=== PATIENT | male | born 1985 | race Caucasian/White ===

== ENCOUNTER 2016-12-09 04:22 | Inpatient (IN) ==
[2016-12-09] MEDS ORDERED: 0.9 % Sodium Chloride 1,000 ML IVC ONE (05:12)
[2016-12-09] MEDS ORDERED: Ondansetron 4 MG/2 ML VIAL IVP ONE (05:12)
[2016-12-09 06:13] LABS: Basophils % 0.2 %; Eosinophils % 0.2 %; Hematocrit 48.4 % (37.5-50.1); Hemoglobin 16.4 g/dL (12.9-16.9); Immature Granulocytes % 0.2 % (0-4); Lymphocytes # 0.7 K/mcL (0.6-4.6); Lymphocytes % 13.4 %; Mean Corpuscular HGB Conc 33.9 g/dL (31.6-35.5); Mean Corpuscular Hemoglobin 30.2 pg (28.0-33.3); Mean Corpuscular Volume 89.1 fL (83.0-100.0); Mean Platelet Volume 9.7 fL (9.4-12.4); Monocytes # 0.1 K/mcL (0.0-1.3); Neutrophils # 4.6 K/mcL (1.6-8.9); Platelet Count 165 K/mcL (140-400); Red Blood Count 5.43 M/mcL (4.19-5.50); Red Cell Distribution Width 12.1 % (11.5-14.5)
[2016-12-09 06:17] LABS: INR 1.1; Prothrombin Time 11.6 Seconds (9.4-12.1)
[2016-12-09 06:19] LABS: Activated Partial Thrombo Time 29.2 Seconds (26.0-36.0)
[2016-12-09 06:28] LABS: Platelet Estimate Normal (Normal)
[2016-12-09] MEDS ORDERED: Ondansetron 4 MG/2 ML VIAL IV ONE (06:30)
[2016-12-09] MEDS ORDERED: *HR* Morphine 2 MG/ML SYRINGE IV ONE (06:30)
[2016-12-09 06:31] LABS: Alanine Aminotransferase 24 Units/L (0-55); Albumin/Globulin Ratio 1.5 (1.1-2.2); Alkaline Phosphatase 64 Units/L (38-126); Amylase 77 Units/L (25-125); Aspartate Amino Transferase 28 Units/L (5-34); BUN/Creatinine Ratio 11 (6-26); Bilirubin,Direct 0.3 mg/dL (0.0-0.5); Bilirubin,Indirect 0.3 mg/dL (0.0-1.2); Bilirubin,Total 0.6 mg/dL (0.2-1.2); Blood Urea Nitrogen 17 mg/dL (8-26); Calcium 9.2 mg/dL (8.6-10.8); Carbon Dioxide 27 mEq/L (19-29); Chloride 96 mEq/L (98-109); Globulin 2.7 g/dL (2.4-3.5); Glucose 386 mg/dL (70-99); Lipase 47 Units/L (8-78); Osmolality,Calculated 296 (280-300); Potassium 4.6 mEq/L (3.5-4.5); Sodium 134 mEq/L (136-145); Total Protein 6.7 g/dL (6.0-8.3); eGFR For African Americans > 60 (> 60); eGFR For Non-African Americans 56 (> 60)
[2016-12-09] MEDS ORDERED: 0.9 % Sodium Chloride 500 ML IV.SOLN IV ONE (06:31)
--- NOTE | 2016-12-09 06:38 | Emergency Department Note ---
Disposition Clinical Impression: Abdominal pain Disposition: Still a Patient Condition: Fair Referrals: Tutu Trevino MD [Primary Care Provider] - Forms: Work/School Release, ED Satisfaction Letter Time of Disposition: 06:56 Abdominal Pain HPI - General Chief Complaint: ED Abdominal Pain Stated Complaint: abd pain/NV/chills Time Seen by Provider: 12/09/16 05:12 Source: patient Mode of arrival: private vehicle Limitations: no limitations Nursing Notes Reviewed: Yes Vital Signs Reviewed: Yes - History of Present Illness HPI Narrative: 30-year-old male presents to the emergency department with abdominal pain, nausea, vomiting and chills. Patient states that this began approximately 2-3 hours ago. He denies any recent contact with sick individuals. He denies any new foods or any additional new exposures. He denies any new medications. He denies any chest pain or shortness of breath. He denies any dizziness or lightheadedness. Pt Subjective Complaint: abdominal pain Onset (ago): hour(s) Consistency: constant Location: diffuse Pain Severity: severe Pain Scale: 10 Quality: aching, sharp Radiation: none Migration to: no migration Improves with: nothing Worsens with: nothing Associated symptoms: Reports: nausea, vomiting, chills. Denies: fever, constipation, dysuria Treatments prior to arrival: none - Related Data Home Medications Medication Instructions Recorded Confirmed Gabapentin [Neurontin] 1,200 mg PO TID 08/17/15 07/15/16 Insulin Human Regular [HumuLIN R] 15 - 25 unit SQ TID 07/15/16 07/15/16 Previous Rx's Medication Instructions Recorded Amoxicillin/Clavulanate [Augmentin] 875 mg PO BIDWM #5 tablet 07/19/16 Insulin NPH, HUMAN [HumuLIN N] 10 unit SQ BID #0 07/19/16 Ondansetron HCl [Zofran] 4 mg PO Q8HR #6 tablet 07/19/16 Pantoprazole Sodium [Protonix] 40 mg PO DAILY #30 tablet. 07/19/16 Cyclobenzaprine [Flexeril] 10 mg PO TID PRN #9 tablet 08/25/16 Dicyclomine [Bentyl] 10 mg PO QID PRN #15 capsule 08/25/16 Ondansetron ODT [Zofran ODT] 1 - 2 tab SL Q4HR #20 tab.rapdis 08/25/16 Allergies Allergy/AdvReac Type Severity Reaction Status Date / Time citalopram [From Celexa] Allergy See Verified 12/09/16 04:24 Comments sertraline [From Zoloft] Allergy See Verified 12/09/16 04:24 Comments acetaminophen AdvReac Diarrhea Verified 12/09/16 04:24 [From Tylenol-Codeine #3] codeine AdvReac Diarrhea Verified 12/09/16 04:24 [From Tylenol-Codeine #3] All systems ED: reviewed and negative except as stated. Constitutional: Reports: chills. Denies: fever Cardiovascular: Denies: chest pain Respiratory: Denies: cough, dyspnea, wheezes Gastrointestinal: Reports: abdominal pain, nausea, vomiting. Denies: diarrhea Musculoskeletal: Denies: back pain, neck pain Integumentary: Denies: rash, abrasion, lesions Neurological: Denies: headache Psychiatric: Denies: anxiety, depression, suicidal thoughts, homicidal thoughts Abdominal Pain PMH - Past Medical History Medical history: Reports: diabetes Male Surgical History: Reports: Adenoidectomy, Tonsillectomy, other Psychiatric history: Reports: depression - Social History Smoking status: Current every day smoker Alcohol use: Reports: occasionally, recent Drug use: Reports: none Physical Exam - General Limitations: no limitations General appearance: alert, in no apparent distress - Head Head exam: atraumatic, normocephalic, normal inspection - Eye Eye exam: Present: normal appearance, PERRL - Neck Neck exam: Present: normal inspection, full ROM, trachea midline - Chest Chest inspection: Present: normal inspection, symmetric chest wall rise - Respiratory Respiratory exam: Present: normal lung sounds bilaterally. Absent: respiratory distress - Cardiovascular Cardiovascular exam: Present: regular rate, normal rhythm, normal heart sounds - Abdominal Exam Abdominal exam: Present: soft, Non-Tender, normal bowel sounds. Absent: distention, guarding, rebound, rigidity - Extremities Exam Extremities exam: Present: normal inspection, full ROM. Absent: tenderness, pedal edema - Expanded Lower Extremity Exam Gait: observed and normal - Back Exam Back exam: Present: normal inspection, full ROM. Absent: tenderness - Neurological Exam Neurological exam: Present: alert, oriented X3 - Psychiatric Psychiatric exam: Present: normal affect, normal mood - Skin Skin exam: Present: warm, dry, intact, normal color Course Vital Signs Temperature 97.4 F L 12/09/16 04:24 Pulse Rate 117 12/09/16 04:24 Respiratory Rate 20 12/09/16 04:24 Blood Pressure 142/82 12/09/16 04:24 O2 Sat by Pulse Oximetry 99 12/09/16 04:24 Temperature 97.4 F L 12/09/16 04:24 Pulse Rate 117 12/09/16 04:24 Respiratory Rate 20 12/09/16 04:24 Blood Pressure 142/82 12/09/16 04:24 O2 Sat by Pulse Oximetry 99 12/09/16 04:24 Oxygen Delivery Oxygen Delivery Room Air Abdominal Pain - Lab Data Lab results reviewed: Yes I reviewed the patient's lab results. Result diagrams: 12/09/16 05:32 12/09/16 05:32 Lab Results 12/09/16 12/09/16 12/09/16 Range/Units 05:32 05:32 05:32 WBC 5.5 (4.3-11.1) K/mcL RBC 5.43 (4.19-5.50) M/mcL Hgb 16.4 (12.9-16.9) g/dL Hct 48.4 (37.5-50.1) % MCV 89.1 (83.0-100.0) fL MCH 30.2 (28.0-33.3) pg MCHC 33.9 (31.6-35.5) g/dL RDW 12.1 (11.5-14.5) % Plt Count 165 (140-400) K/mcL MPV 9.7 (9.4-12.4) fL Immature Gran % 0.2 (0-4) % Seg Neutrophils % 84.0 % Lymphocytes % 13.4 % Monocytes % 2.0 % Eosinophils % 0.2 % Basophils % 0.2 % Neutrophils # 4.6 (1.6-8.9) K/mcL Lymphocytes # 0.7 (0.6-4.6) K/mcL Monocytes # 0.1 (0.0-1.3) K/mcL Eosinophils # 0.0 (0.0-0.6) K/mcL Basophils # 0.0 (0.0-0.2) K/mcL Platelet Estimate Normal (Normal) Immature Plt Fraction 3.0 (1.1-6.1) % PT 11.6 (9.4-12.1) Seconds INR 1.1 APTT 29.2 (26.0-36.0) Seconds Sodium 134 L (136-145) mEq/L Potassium 4.6 H (3.5-4.5) mEq/L Chloride 96 L (98-109) mEq/L Carbon Dioxide 27 (19-29) mEq/L BUN 17 (8-26) mg/dL Creatinine 1.49 H (0.72-1.25) mg/dL Est GFR ( Amer) > 60 (> 60) Est GFR (Non-Af Amer) 56 L (> 60) BUN/Creatinine Ratio 11 (6-26) Glucose 386 H (70-99) mg/dL Calculated Osmolality 296 (280-300) Calcium 9.2 (8.6-10.8) mg/dL Total Bilirubin 0.6 (0.2-1.2) mg/dL Direct Bilirubin 0.3 (0.0-0.5) mg/dL Indirect Bilirubin 0.3 (0.0-1.2) mg/dL AST 28 (5-34) Units/L ALT 24 (0-55) Units/L Alkaline Phosphatase 64 (38-126) Units/L Serum Total Protein 6.7 (6.0-8.3) g/dL Albumin 4.0 (3.5-5.0) g/dL Globulin 2.7 (2.4-3.5) g/dL Albumin/Globulin Ratio 1.5 (1.1-2.2) Amylase 77 (25-125) Units/L Lipase 47 (8-78) Units/L
--- NOTE | 2016-12-09 06:48 | Emergency Department Note ---
START Narrative - START START: I examined this patient and my medical decision-making was reviewed with the [employer]/PA/Advanced Practice Nurse/Resident Physician. I agree with the documented findings, disposition and treatment plan as described except to the extent set forth below. ED attending note: Patient seen with MARA DEUTSCH. Please see a copy of his note for details of the H&P, evaluation, management and disposition of this patient. We independently had [id number] contact with the patient Briefly: A 30-year-old male history of colitis presents with abdominal pain worse over the past several days. Abdominal examination surgically benign. Afebrile stable vital signs labs and CT scans pending. Disposition pending.
--- NOTE | 2016-12-09 06:57 | Emergency Department Note ---
Disposition Clinical Impression: Ileus Intractable nausea and vomiting Qualifiers: Vomiting type: unspecified Qualified Code(s): R11.2 - Nausea with vomiting, unspecified Disposition: Admitted As Inpatient Condition: Fair Referrals: Tutu Trevino MD [Primary Care Provider] - Forms: ED Satisfaction Letter, Work/School Release Time of Disposition: 08:28 Abdominal Pain HPI - General Chief Complaint: ED Abdominal Pain Stated Complaint: abd pain/NV/chills Time Seen by Provider: 12/09/16 05:12 Source: patient Mode of arrival: private vehicle - History of Present Illness Pt Subjective Complaint: abdominal pain Location: diffuse Pain Severity: severe Pain Scale: 10 Quality: aching, sharp Migration to: no migration Improves with: nothing Worsens with: nothing Associated symptoms: Reports: nausea, vomiting, chills. Denies: fever, constipation, dysuria - Related Data Home Medications Medication Instructions Recorded Confirmed Gabapentin [Neurontin] 1,200 mg PO TID 08/17/15 07/15/16 Insulin Human Regular [HumuLIN R] 15 - 25 unit SQ TID 07/15/16 07/15/16 Previous Rx's Medication Instructions Recorded Amoxicillin/Clavulanate [Augmentin] 875 mg PO BIDWM #5 tablet 07/19/16 Insulin NPH, HUMAN [HumuLIN N] 10 unit SQ BID #0 07/19/16 Ondansetron HCl [Zofran] 4 mg PO Q8HR #6 tablet 07/19/16 Pantoprazole Sodium [Protonix] 40 mg PO DAILY #30 tablet. 07/19/16 Cyclobenzaprine [Flexeril] 10 mg PO TID PRN #9 tablet 08/25/16 Dicyclomine [Bentyl] 10 mg PO QID PRN #15 capsule 08/25/16 Ondansetron ODT [Zofran ODT] 1 - 2 tab SL Q4HR #20 tab.rapdis 08/25/16 Allergies Allergy/AdvReac Type Severity Reaction Status Date / Time citalopram [From Celexa] Allergy See Verified 12/09/16 04:24 Comments sertraline [From Zoloft] Allergy See Verified 12/09/16 04:24 Comments acetaminophen AdvReac Diarrhea Verified 12/09/16 04:24 [From Tylenol-Codeine #3] codeine AdvReac Diarrhea Verified 12/09/16 04:24 [From Tylenol-Codeine #3] Constitutional: Reports: chills. Denies: fever Cardiovascular: Denies: chest pain Respiratory: Denies: cough, dyspnea, wheezes Gastrointestinal: Reports: abdominal pain, nausea, vomiting. Denies: diarrhea Musculoskeletal: Denies: back pain, neck pain Integumentary: Denies: rash, abrasion, lesions Neurological: Denies: headache Psychiatric: Denies: anxiety, depression, suicidal thoughts, homicidal thoughts Abdominal Pain PMH - Past Medical History Medical history: Reports: diabetes Male Surgical History: Reports: Adenoidectomy, Tonsillectomy, other Psychiatric history: Reports: depression - Social History Smoking status: Current every day smoker Alcohol use: Reports: occasionally, recent Drug use: Reports: none Physical Exam - General Limitations: no limitations General appearance: alert, in no apparent distress Course Course Narrative: 0600: I have assumed care of this patient from Aron Harden PA-C due to shift change. Briefly, the patient is a 30-year-old alert and oriented and nontoxic- appearing male that presents for evaluation of abdominal pain, nausea, and vomiting that began sometime around midnight last night. Patient states a history of colitis and diabetes. He denies any fever, blood in his stool, diarrhea. He admits to being constipated, as he has not had a bowel movement in the past "2-3 days". Most of his pain is localized to the umbilical and suprapubic region. Dr. Adam has had a [id number] with the patient as well. Dr. Adam recommends a CT of the abdomen and pelvis. If this is negative, he recommends discharge patient home with primary care provider follow -up. Please see previous documentation from [facility] for care provided prior to my arrival. 0820: I discussed the patient's case and CT results with [facility] Dr. Huerta recommends admission to the hospitalist service for further evaluation and treatment of an ileus as well as intractable nausea and vomiting. I have discussed this plan with the patient and the patient is in agreement. At this time, I am awaiting a return phone call from the hospitalist. 0824: Dr. Morfin, hospitalist returned call. Dr. Morfin accepts the patient for admission to the hospitalist service. Vital Signs Temperature 97.4 F L 03/25/17 04:24 Pulse Rate 117 12/09/16 04:24 Respiratory Rate 20 12/09/16 04:24 Blood Pressure 142/82 12/09/16 04:24 O2 Sat by Pulse Oximetry 99 12/09/16 04:24 Temperature 97.4 F L 12/09/16 04:24 Pulse Rate 104 12/09/16 08:05 Respiratory Rate 18 12/09/16 08:05 Blood Pressure 128/74 12/09/16 08:05 O2 Sat by Pulse Oximetry 97 12/09/16 08:05 Oxygen Delivery Oxygen Delivery Room Air Abdominal Pain - Medical Records Medical records reviewed: Yes I reviewed the patient's medical records. - Lab Data Lab results reviewed: Yes I reviewed the patient's lab results. Lab results narrative: Laboratory Last Values WBC 5.5 K/mcL (4.3-11.1) 12/09/16 05:32 RBC 5.43 M/mcL (4.19-5.50) 12/09/16 05:32 Hgb 16.4 g/dL (12.9-16.9) 12/09/16 05:32 Hct 48.4 % (37.5-50.1) 12/09/16 05:32 MCV 89.1 fL (83.0-100.0) 12/09/16 05:32 MCH 30.2 pg (28.0-33.3) 12/09/16 05:32 MCHC 33.9 g/dL (31.6-35.5) 12/09/16 05:32 RDW 12.1 % (11.5-14.5) 12/09/16 05:32 Plt Count 165 K/mcL (140-400) 12/09/16 05:32 MPV 9.7 fL (9.4-12.4) 12/09/16 05:32 Immature Gran % 0.2 % (0-4) 12/09/16 05:32 Seg Neutrophils % 84.0 % 12/09/16 05:32 Lymphocytes % 13.4 % 12/09/16 05:32 Monocytes % 2.0 % 12/09/16 05:32 Eosinophils % 0.2 % 12/09/16 05:32 Basophils % 0.2 % 12/09/16 05:32 Neutrophils # 4.6 K/mcL (1.6-8.9) 12/09/16 05:32 Lymphocytes # 0.7 K/mcL (0.6-4.6) 12/09/16 05:32 Monocytes # 0.1 K/mcL (0.0-1.3) 12/09/16 05:32 Eosinophils # 0.0 K/mcL (0.0-0.6) 12/09/16 05:32 Basophils # 0.0 K/mcL (0.0-0.2) 12/09/16 05:32 Platelet Estimate Normal (Normal) 12/09/16 05:32 Immature Plt Fraction 3.0 % (1.1-6.1) 12/09/16 05:32 PT 11.6 Seconds (9.4-12.1) 12/09/16 05:32 INR 1.1 12/09/16 05:32 APTT 29.2 Seconds (26.0-36.0) 12/09/16 05:32 VBG pH 7.34 pH Units (7.32-7.42) 12/09/16 07:32 VBG pCO2 54 mmHg (41-51) H 12/09/16 07:32 VBG pO2 75 mmHg (25-40) H 12/09/16 07:32 VBG HCO3 29.1 mEq/L (21-27) H 12/09/16 07:32 Sodium 134 mEq/L (136-145) L 12/09/16 05:32 Potassium 4.6 mEq/L (3.5-4.5) H 12/09/16 05:32 Chloride 96 mEq/L (98-109) L 12/09/16 05:32 Carbon Dioxide 27 mEq/L (19-29) 12/09/16 05:32 BUN 17 mg/dL (8-26) 12/09/16 05:32 Creatinine 1.49 mg/dL (0.72-1.25) H 12/09/16 05:32 Est GFR ( Amer) > 60 (> 60) 12/09/16 05:32 Est GFR (Non-Af Amer) 56 (> 60) L 12/09/16 05:32 BUN/Creatinine Ratio 11 (6-26) 12/09/16 05:32 Glucose 386 mg/dL (70-99) H 12/09/16 05:32 POC Glucose 312 (58-89) H 12/09/16 07:27 Calculated Osmolality 296 (280-300) 12/09/16 05:32 Calcium 9.2 mg/dL (8.6-10.8) 12/09/16 05:32 Total Bilirubin 0.6 mg/dL (0.2-1.2) 12/09/16 05:32 Direct Bilirubin 0.3 mg/dL (0.0-0.5) 12/09/16 05:32 Indirect Bilirubin 0.3 mg/dL (0.0-1.2) 12/09/16 05:32 AST 28 Units/L (5-34) 12/09/16 05:32 ALT 24 Units/L (0-55) 12/09/16 05:32 Alkaline Phosphatase 64 Units/L (38-126) 12/09/16 05:32 Serum Total Protein 6.7 g/dL (6.0-8.3) 12/09/16 05:32 Albumin 4.0 g/dL (3.5-5.0) 12/09/16 05:32 Globulin 2.7 g/dL (2.4-3.5) 12/09/16 05:32 Albumin/Globulin Ratio 1.5 (1.1-2.2) 12/09/16 05:32 Amylase 77 Units/L (25-125) 12/09/16 05:32 Lipase 47 Units/L (8-78) 12/09/16 05:32 Beta-Hydroxybutyric Acd 1.74 mmol/L (0.02-0.27) H 12/09/16 05:32 Result diagrams: 12/09/16 05:32 12/09/16 05:32 Lab Results 12/09/16 12/09/16 12/09/16 Range/Units 05:32 05:32 05:32 WBC 5.5 (4.3-11.1) K/mcL RBC 5.43 (4.19-5.50) M/mcL Hgb 16.4 (12.9-16.9) g/dL Hct 48.4 (37.5-50.1) % MCV 89.1 (83.0-100.0) fL MCH 30.2 (28.0-33.3) pg MCHC 33.9 (31.6-35.5) g/dL RDW 12.1 (11.5-14.5) % Plt Count 165 (140-400) K/mcL MPV 9.7 (9.4-12.4) fL Immature Gran % 0.2 (0-4) % Seg Neutrophils % 84.0 % Lymphocytes % 13.4 % Monocytes % 2.0 % Eosinophils % 0.2 % Basophils % 0.2 % Neutrophils # 4.6 (1.6-8.9) K/mcL Lymphocytes # 0.7 (0.6-4.6) K/mcL Monocytes # 0.1 (0.0-1.3) K/mcL Eosinophils # 0.0 (0.0-0.6) K/mcL Basophils # 0.0 (0.0-0.2) K/mcL Platelet Estimate Normal (Normal) Immature Plt Fraction 3.0 (1.1-6.1) % PT 11.6 (9.4-12.1) Seconds INR 1.1 APTT 29.2 (26.0-36.0) Seconds VBG pH (7.32-7.42) pH Units VBG pCO2 (41-51) mmHg VBG pO2 (25-40) mmHg VBG HCO3 (21-27) mEq/L Sodium 134 L (136-145) mEq/L Potassium 4.6 H (3.5-4.5) mEq/L Chloride 96 L (98-109) mEq/L Carbon Dioxide 27 (19-29) mEq/L BUN 17 (8-26) mg/dL Creatinine 1.49 H (0.72-1.25) mg/dL Est GFR ( Amer) > 60 (> 60) Est GFR (Non-Af Amer) 56 L (> 60) BUN/Creatinine Ratio 11 (6-26) Glucose 386 H (70-99) mg/dL POC Glucose (58-89) Calculated Osmolality 296 (280-300) Calcium 9.2 (8.6-10.8) mg/dL Total Bilirubin 0.6 (0.2-1.2) mg/dL Direct Bilirubin 0.3 (0.0-0.5) mg/dL Indirect Bilirubin 0.3 (0.0-1.2) mg/dL AST 28 (5-34) Units/L ALT 24 (0-55) Units/L Alkaline Phosphatase 64 (38-126) Units/L Serum Total Protein 6.7 (6.0-8.3) g/dL Albumin 4.0 (3.5-5.0) g/dL Globulin 2.7 (2.4-3.5) g/dL Albumin/Globulin Ratio 1.5 (1.1-2.2) Amylase 77 (25-125) Units/L Lipase 47 (8-78) Units/L Beta-Hydroxybutyric Acd 1.74 H (0.02-0.27) mmol/L 12/09/16 12/09/16 Range/Units 07:27 07:32 WBC (4.3-11.1) K/mcL RBC (4.19-5.50) M/mcL Hgb (12.9-16.9) g/dL Hct (37.5-50.1) % MCV (83.0-100.0) fL MCH (28.0-33.3) pg MCHC (31.6-35.5) g/dL RDW (11.5-14.5) % Plt Count (140-400) K/mcL MPV (9.4-12.4) fL Immature Gran % (0-4) % Seg Neutrophils % % Lymphocytes % % Monocytes % % Eosinophils % % Basophils % % Neutrophils # (1.6-8.9) K/mcL Lymphocytes # (0.6-4.6) K/mcL Monocytes # (0.0-1.3) K/mcL Eosinophils # (0.0-0.6) K/mcL Basophils # (0.0-0.2) K/mcL Platelet Estimate (Normal) Immature Plt Fraction (1.1-6.1) % PT (9.4-12.1) Seconds INR APTT (26.0-36.0) Seconds VBG pH 7.34 (7.32-7.42) pH Units VBG pCO2 54 H (41-51) mmHg VBG pO2 75 H (25-40) mmHg VBG HCO3 29.1 H (21-27) mEq/L Sodium (136-145) mEq/L Potassium (3.5-4.5) mEq/L Chloride (98-109) mEq/L Carbon Dioxide (19-29) mEq/L BUN (8-26) mg/dL Creatinine (0.72-1.25) mg/dL Est GFR ( Amer) (> 60) Est GFR (Non-Af Amer) (> 60) BUN/Creatinine Ratio (6-26) Glucose (70-99) mg/dL POC Glucose 312 H (58-89) Calculated Osmolality (280-300) Calcium (8.6-10.8) mg/dL Total Bilirubin (0.2-1.2) mg/dL Direct Bilirubin (0.0-0.5) mg/dL Indirect Bilirubin (0.0-1.2) mg/dL AST (5-34) Units/L ALT (0-55) Units/L Alkaline Phosphatase (38-126) Units/L Serum Total Protein (6.0-8.3) g/dL Albumin (3.5-5.0) g/dL Globulin (2.4-3.5) g/dL Albumin/Globulin Ratio (1.1-2.2) Amylase (25-125) Units/L Lipase (8-78) Units/L Beta-Hydroxybutyric Acd (0.02-0.27) mmol/L - Radiology Data Radiology results reviewed: Yes I reviewed the patient's radiology results. Abdomen/Pelvis CT 12/09/16 06:30 IMPRESSION: 1. Evaluation is limited by lack of contrast. Small bowel loops are dilated and fluid-filled measuring up to 4 cm. Fecal material is seen in some of the small bowel loops, suggesting stasis. No bowel wall thickening. There is gradual transition to normal caliber distal loops. Large amount of stool seen throughout the colon. No evidence for high-grade obstruction. 2. Normal appendix. D/ / Maria Ines Parsons MD / Maria Ines Parsons MD Interpreting Provider: Maria Ines Parsons MD
[2016-12-09 07:00] LABS: Beta-Hydroxybutyric Acid 1.74 mmol/L (0.02-0.27)
[2016-12-09 07:37] LABS: VBG HCO3 29.1 mEq/L (21-27); VBG PH 7.34 pH Units (7.32-7.42)
[2016-12-09] MEDS ORDERED: Naloxone 0.4 MG/ML INJ IVP PRN (10:48)
[2016-12-09] MEDS ORDERED: *HR* Morphine 2 MG/ML SYRINGE IVP PRN (10:50)
[2016-12-09] MEDS ORDERED: Ondansetron 4 MG/2 ML VIAL IVP PRN (10:50)
[2016-12-09] MEDS ORDERED: 0.9 % Sodium Chloride 1,000 ML IVC SCH ×2 (11:00→13:15)
--- NOTE | 2016-12-09 11:24 | Internal Med History&Physical ---
<Orin Harley - Last Filed: 12/09/16 15:24> Date of Encounter: 12/09/16 Time of Encounter: 11:22 Assessment and Plan (1) DKA, type 1 Current visit: Yes Status: Acute 1 Patient has been experiencing sudden onset of abd N/V. Has hx of Type 1 DM. Presents iwth BS 386 Anion Gap 11 creatinine 1.49 Beta hydroxinate 1.74 Ph on VBG 7.34 Mild DKS will start on Insulin Gtt per protocol accuceck every hour 2 IVF per DKA protocol 3 monitor I/O 4 NPO 5 zofran for nausea Qualifiers: Diabetes mellitus complication detail: without coma Qualified Code(s): E10.10 - Type 1 diabetes mellitus with ketoacidosis without coma (2) Ileus Current visit: Yes Status: Acute 1 presented with abd pain N/V afebrile. has hx of of colitis and diabetes . CT of abd demonstrates ileus, which I suspect is rt to gastroporesis. Will rest bowel. Make patient NPO for now 2 IVF, zofran for nausea (3) Cigarette smoker Current visit: No Status: Acute 1 encourage to stop smoking nicotine patch (4) DVT prophylaxis Current visit: No Status: Acute 1 [facility] Internal Medicine - H&P: HPI Chief complaint: abd pain N/V Admitted From: Emergency Dept Plans for Post Hospital Care: Home History of present illness: Mr. Garcia is a 30 year old male with a past medical hx of colitis tobacco abuse and type 1 DM. He states that he began having abd pain and N/v yesterday. He describes the pain as sharp and constant. It is worse prior to vomiting and eases after vomiting. He has had > 10 episode of vomiting . He has also been expereincing constipation which he states is chronic. He normally uses Radha lax for his constipation. He is unsure when he had his last BM. He is a type 1 diabetic and checks his BS however he is unable to tell me what his BS have been. He states up and down. His last episode of DKA was approx one year ago. He denies any sick contacts. He denies any ETOH/drug use. He denies any SOB CP diarrhea fever cough or chills. He presented to the ED with the above complaints .According to ED records a CT of ABD did reveal dilatation of small bowel loos and fluid filled measured up to 4cm. As well as fecal matter stasis.. Labwork revealed no leukocytosis Creatinine 1.49 gkucose 386 potassium 4.6 Na 134 cl 96. Beta hydroxinate 1.74. He was given IV fluids pain medicaitions and zofran. He was admitted for further workup and evaluation. Presently he does not appear to be in any respiratory distress. He denies any cp or SOB He does complain of some mild ABD pain No N/V at this time. ABD is soft with diffuse tenderness to palpation. No guarding . Lung sounds are clear, Heart sounds S1S2 no rubs clicks or murmurs. Patient is hemodynamically stable I reviewed this case with Dr Morfin who agrees with plan Past Med Surg Social Fam HX - Past Medical History Medical history: diabetes Psychiatric history: depression - Past Surgical History Surgical History: no surgical history - Social History Smoking Status: Current every day smoker Packs per day: 2 Smokeless Tobacco Status: Yes Alcohol use: rarely Drug use: none Internal Medicine - H&P: Meds Gabapentin [Neurontin] 1,200 mg PO TID 08/17/15 [History] Insulin Human Regular [HumuLIN R] 15 - 25 unit SQ TID 07/15/16 [History] Pantoprazole Sodium [Protonix] 40 mg PO DAILY #30 tablet. 07/19/16 [Rx] Insulin NPH, HUMAN [HumuLIN N] 50 unit SQ HS 12/09/16 [History] Allergies citalopram [From Celexa] Allergy (Verified 12/09/16 04:24) See Comments suicidal ideation sertraline [From Zoloft] Allergy (Verified 12/09/16 04:24) See Comments Suicidal ideation acetaminophen [From Tylenol-Codeine #3] Adverse Reaction (Verified 12/09/16 04: 24) Diarrhea codeine [From Tylenol-Codeine #3] Adverse Reaction (Verified 12/09/16 04:24) Diarrhea All Systems PM: A 10-system review of systems was performed and is negative for pertinent findings except as documented above in the HPI. - Constitutional Constitutional: anorexia - Cardiovascular Cardiovascular ROS IM: no chest pain, no diaphoresis, no dyspnea, no lightheadedness, no palpitations, no syncope - Respiratory Respiratory: no cough, no dyspnea, no wheezing, no excessive phlegm production - Gastrointestinal Gastrointestinal: abdominal pain, nausea, vomiting - Musculoskeletal Musculoskeletal ROS IM: no numbness, no tingling - Integumentary Integumentary IM: no rash, no unusual bruising - Neurological Neurological ROS: no confusion, no convulsions, no focal weakness, no numbness, no tingling, no tremor(s) - Hematologic/Lymphatic Hematologic/Lymphatic: no easy bruising - Constitutional Vitals: Temp Pulse Resp BP Pulse Ox 99.5 F 108 16 123/70 95 12/09/16 11:15 12/09/16 11:15 12/09/16 11:15 12/09/16 11:15 12/09/16 11:15 General appearance: Present: A&O X 3, answers questions appropriately - Head Head exam: Present: atraumatic, normocephalic - Eye Eye exam: Present: PERRL, conjuntiva pink, sclera anicteric Pupils: Present: PERRL - Neck Neck exam general surgery: Present: supple, trachea midline. Absent: lymphadenopathy - Respiratory Respiratory exam: Present: CTAB. Absent: accessory muscle use, rales, rhonchi, wheezes - Cardiovascular Cardiovascular exam: Present: RRR, +S1, +S2. Absent: diastolic murmur, gallop, rubs, systolic murmur - GI/Abdominal GI/Abdominal exam: Present: normal bowel sounds, soft, tenderness, no peritoneal signs. Absent: distended - Extremities Exam Extremities exam: Present: warm, radial pulses palpable and symetrical. Absent : calf tenderness, cyanotic, pedal edema - Neurological Exam Neurological exam: Present: CN II-XII intact, oriented X3, no focal deficits. Absent: pronater drift, facial droop, speech deficit - Skin Skin exam: Present: dry, intact Internal Med - H&P Results - Labs CBC & Chem 7: 12/09/16 05:32 12/09/16 12:23 - Diagnostic Studies Other Images Additional comments: Abdomen/Pelvis CT 12/09/16 06:30 IMPRESSION: 1. Evaluation is limited by lack of contrast. Small bowel loops are dilated and fluid-filled measuring up to 4 cm. Fecal material is seen in some of the small bowel loops, suggesting stasis. No bowel wall thickening. There is gradual transition to normal caliber distal loops. Large amount of stool seen throughout the colon. No evidence for high-grade obstruction. 2. Normal appendix. D/ / 12/09/2016 09:09:10 Maria Ines Parsons MD / morgan Interpreting Provider: Maria Ines Parsons MD <[email or web address] - Last Filed: 12/09/16 20:20> Internal Medicine - H&P: HPI History of present illness: Mr. Garcia is a 30 year old male All Systems PM: A 10-system review of systems was performed and is negative for pertinent findings except as documented above in the HPI. - Constitutional Vitals: Temp Pulse Resp BP Pulse Ox 99.8 F H 111 18 124/66 96 12/09/16 19:43 12/09/16 19:43 12/09/16 19:43 12/09/16 19:43 12/09/16 19:43 Internal Med - H&P Results - Labs CBC & Chem 7: 12/09/16 05:32 12/09/16 19:48 Labs: BMP 12/09/16 12/09/16 12:23 19:48 Sodium 136 136 Potassium 4.9 H 4.3 Chloride 101 105 Carbon Dioxide 23 23 BUN 24 23 Creatinine 1.22 0.94 Glucose 371 H 120 H Calcium 8.0 L 7.5 L - ABG Interpretation ABG results: 12/09/16 19:48 VBG pH 7.40 VBG pCO2 45 VBG pO2 113 H VBG HCO3 27.9 H - Attending Attestation I examined this patient and my medical decision-making was reviewed with the Advanced Practice Nurse. I agree with the documented findings, disposition and treatment plan as described except to the extent set forth below. Patient with type 1 diabetes presented with sudden onset abdominal pain nausea vomiting and diarrhea. Started 12 hours ago. Denies any fever or any prodromal syndrome. On exam he is in no acute distress abdomen is soft nontender nondistended with normoactive bowel sounds. Plan: DKA, will treated with insulin drip per protocol, possible viral gastroenteritis we will treat supportively with IV fluids pain medication and nausea medication. We will check a UA and urine toxicology screen. Check hemoglobin A1c. Restart gabapentin 4 peripheral neuropathy.
[2016-12-09 11:59] LABS: Magnesium 1.4 mg/dL (1.6-2.6); Phosphorous 4.1 mg/dL (2.3-4.7)
[2016-12-09 13:06] LABS: BUN/Creatinine Ratio 20 (6-26); Blood Urea Nitrogen 24 mg/dL (8-26); Carbon Dioxide 23 mEq/L (19-29); Chloride 101 mEq/L (98-109); Glucose 371 mg/dL (70-99); Osmolality,Calculated 301 (280-300); Potassium 4.9 mEq/L (3.5-4.5); Sodium 136 mEq/L (136-145); eGFR For African Americans > 60 (> 60); eGFR For Non-African Americans > 60 (> 60)
[2016-12-09] MEDS ORDERED: Insulin Regular, Human 100 UNIT/ML IV PRN (13:15)
[2016-12-09] MEDS ORDERED: *HR* Dextrose 50 % in Water (Syg) 50 ML SYRINGE IVP PRN (13:15)
[2016-12-09] MEDS ORDERED: Insulin Human Regular 100 UNIT in 0.9 % Sodium Chloride 100 ML IVC SCH (13:15)
[2016-12-09] MEDS ORDERED: D5% in 0.45% NACL 1,000 ML IVC PRN (13:15)
[2016-12-09] MEDS ORDERED: 0.9 % Sodium Chloride w KCl 20 MEQ/1,000 ML MLS IVC SCH (15:00)
[2016-12-09] MEDS: Nicotine 14 MG PATCH.TD24 TD SCH (15:49)
[2016-12-09] MEDS: 0.9 % Sodium Chloride w KCl 20 MEQ/1,000 ML MLS IVC SCH ×2 (15:53→17:51)
[2016-12-09] MEDS ORDERED: D5% in 0.45% NACL w KCl 20 MEQ/1,000 ML MLS IVC PRN (19:31)
[2016-12-09 20:03] LABS: VBG HCO3 27.9 mEq/L (21-27); VBG PH 7.4 pH Units (7.32-7.42)
[2016-12-09 20:15] LABS: BUN/Creatinine Ratio 24 (6-26); Blood Urea Nitrogen 23 mg/dL (8-26); Calcium 7.5 mg/dL (8.6-10.8); Carbon Dioxide 23 mEq/L (19-29); Chloride 105 mEq/L (98-109); Glucose 120 mg/dL (70-99); Osmolality,Calculated 287 (280-300); Potassium 4.3 mEq/L (3.5-4.5); Sodium 136 mEq/L (136-145); eGFR For African Americans > 60 (> 60); eGFR For Non-African Americans > 60 (> 60)
[2016-12-09] MEDS ORDERED: 0.9 % Sodium Chloride w KCl 20 MEQ/1,000 ML MLS IVC PRN (20:35)
[2016-12-09] MEDS ORDERED: Insulin DETEMIR 100 UNIT/ML X5UNITS SQ ONE (20:47)
[2016-12-09] MEDS: Gabapentin 400 MG CAPSULE PO SCH (21:14)
[2016-12-10] MEDS ORDERED: *HR* Enoxaparin 40 MG/0.4 ML SYRINGE SQ SCH (06:00)
[2016-12-10 06:07] LABS: Hematocrit 38.2 % (37.5-50.1); Mean Corpuscular HGB Conc 33.5 g/dL (31.6-35.5); Mean Corpuscular Volume 89.7 fL (83.0-100.0); Mean Platelet Volume 9.9 fL (9.4-12.4); Platelet Count 145 K/mcL (140-400); Red Blood Count 4.26 M/mcL (4.19-5.50); Red Cell Distribution Width 12.2 % (11.5-14.5)
[2016-12-10 06:12] LABS: Hemoglobin 12.8 g/dL (12.9-16.9); Hemoglobin A1C 8.6 %
[2016-12-10 06:18] LABS: BUN/Creatinine Ratio 24 (6-26); Blood Urea Nitrogen 20 mg/dL (8-26); Calcium 7.6 mg/dL (8.6-10.8); Carbon Dioxide 24 mEq/L (19-29); Chloride 104 mEq/L (98-109); Glucose 202 mg/dL (70-99); Osmolality,Calculated 290 (280-300); Sodium 136 mEq/L (136-145); eGFR For African Americans > 60 (> 60); eGFR For Non-African Americans > 60 (> 60)
[2016-12-10 06:36] LABS: Eosinophils # 0.2 K/mcL (0.0-0.6); Large Platelets Present (Not Present); Lymphocytes # 1.6 K/mcL (0.6-4.6); Monocytes # 0.1 K/mcL (0.0-1.3); Neutrophils # 3.8 K/mcL (1.6-8.9)
[2016-12-10 06:37] LABS: Platelet Estimate Normal (Normal); Reactive Lymphocytes Present (Not Present)
[2016-12-10] MEDS ORDERED: Ondansetron 4 MG/2 ML VIAL ONE (07:57)
[2016-12-10] MEDS: Insulin LISPRO 300 UNITS/3 ML VIAL SQ SCH ×3 (08:05→15:56)
[2016-12-10] MEDS: Ondansetron 4 MG/2 ML VIAL IVP PRN ×3 (08:05→23:32)
[2016-12-10] MEDS: Nicotine 14 MG PATCH.TD24 TD SCH (08:06)
[2016-12-10] MEDS: Gabapentin 400 MG CAPSULE PO SCH ×3 (08:06→20:25)
[2016-12-10 12:06] LABS: Bilirubin,Urine Negative (Negative); Blood,Urine Negative (Negative); Clarity,Urine Clear (Clear); Color,Urine Yellow (Yellow); Glucose,Urine (UA) >=1000 mg/dL (Normal); Ketones,Urine 80 mg/dL (Negative); Leukocyte Esterase,Urine Negative (Negative); Nitrite,Urine Negative (Negative); PH,Urine 5.5 pH Units (5.0-8.0); Protein,Urine Negative (Neg-Trace); Specific Gravity,Urine > 1.030 (1.010-1.025); Urobilinogen,Urine Normal (Normal)
[2016-12-10] MEDS: *HR* HYDROmorphone (PF) 1 MG/ML SYRINGE IVP PRN ×3 (13:39→23:31)
[2016-12-10 16:17] LABS: Amphetamine Screen,Urine Negative ng/mL (Cutoff=1000); Barbiturate Screen,Urine Negative ng/mL (Cutoff=200); Benzodiazepines Screen,Urine Negative ng/mL (Cutoff=200); Cannabinoid Screen,Urine Negative ng/mL (Cutoff = 50); Cocaine Screen,Urine Negative ng/mL (Cutoff= 300); Opiate Screen,Urine Negative ng/mL (Cutoff=300); Phencyclidine Screen,Urine Negative ng/mL (Cutoff=25)
[2016-12-10 19:05] LABS: Adenovirus F 40/41 PCR Not detected (Not detect); Astrovirus PCR Not detected (Not detect); Campylobacter by PCR Not detected (Not detect); Cryptosporidium by PCR Not detected (Not detect); Cyclospora cayetanensis PCR Not detected (Not detect); E. coli O157 by PCR Not detected (Not detect); Entamoeba histolytica PCR Not detected (Not detect); Enteroaggregative E.coli(EAEC) Not detected (Not detect); Enteropathogenic E.coli(EPEC) Not detected (Not detect); Enterotoxigenic E.coli (ETEC) Not detected (Not detect); Giardia lamblia PCR Not detected (Not detect); Norovirus GI/GII PCR Not detected (Not detect); Plesiomonas shigelloides PCR Not detected (Not detect); Rotavirus A PCR Not detected (Not detect); Salmonella PCR Not detected (Not detect); Sapovirus PCR Not detected (Not detect); Shig/EnteroinvasiveE coli EIEC Not detected (Not detect); Shigalike tox-prod E coli STEC Not detected (Not detect); Vibrio PCR Not detected (Not detect); Vibrio cholerae PCR Not detected (Not detect); Yersinia enterocolitica PCR Not detected (Not detect)
--- NOTE | 2016-12-10 20:21 | Internal Med Progress Note ---
Date of Encounter: 12/10/16 Time of Encounter: 14:00 - Assessment and plan (1) Type 1 diabetes Current Visit: No Status: Acute Assessment and plan: Completed insulin drip. Switch to insulin sliding scale. Hemoglobin A1c is 8.6 his poorly controlled. We will consult parent educator. Qualifiers: Diabetes mellitus complication status: with hyperglycemia Qualified Code(s) : E10.65 - Type 1 diabetes mellitus with hyperglycemia (2) DKA (diabetic ketoacidoses) Current Visit: No Status: Acute Assessment and plan: Has resolved. Is closed now. Monitor electrolytes. Qualifiers: Diabetes mellitus type: type 1 Diabetes mellitus complication detail: without coma Qualified Code(s): E10.10 - Type 1 diabetes mellitus with ketoacidosis without coma (3) Intractable nausea and vomiting Current Visit: Yes Status: Acute Assessment and plan: We will treat this with Zofran. Qualifiers: Vomiting type: unspecified Qualified Code(s): R11.2 - Nausea with vomiting , unspecified (4) Acute gastroenteritis Current Visit: Yes Status: Acute Assessment and plan: Possible viral etiology. We will check a viral panel. He does not have risk factors proceeded therefore were not send testing. We will treat supportively with IV fluids pain and nausea medication. - Subjective Interval history: Patient reports that his nausea has improved however he continues to have sharp epigastric abdominal pain worse with eating food. Pain improves with IV pain medication. - Constitutional Vitals: Temp Pulse Resp BP Pulse Ox 98.7 F 78 14 132/78 98 12/10/16 16:04 12/10/16 16:04 12/10/16 16:04 12/10/16 16:04 12/10/16 16:04 General appearance: Present: A&O X 3, answers questions appropriately - Eye Eye exam: Present: PERRL, conjuntiva pink, sclera anicteric Pupils: Present: PERRL - Cardiovascular Cardiovascular exam: Present: RRR, +S1, +S2. Absent: diastolic murmur, gallop, rubs, systolic murmur - GI/Abdominal GI/Abdominal exam: Present: normal bowel sounds, soft, no peritoneal signs. Absent: distended, tenderness - Extremities Exam Extremities exam: Present: warm, radial pulses palpable and symetrical. Absent : calf tenderness, cyanotic, pedal edema - Neurological Exam Neurological exam: Present: CN II-XII intact, oriented X3, no focal deficits. Absent: pronater drift, facial droop, speech deficit Internal Medicine: Result - Labs CBC & Chem 7: 12/10/16 05:45 12/10/16 05:45 Labs: Short CBC 12/10/16 Range/Units 05:45 WBC 5.8 (4.3-11.1) K/mcL Hgb 12.8 L D (12.9-16.9) g/dL Hct 38.2 (37.5-50.1) % Plt Count 145 (140-400) K/mcL Neutrophils # 3.8 (1.6-8.9) K/mcL BMP 12/10/16 05:45 Sodium 136 Potassium 4.0 Chloride 104 Carbon Dioxide 24 BUN 20 Creatinine 0.85 Glucose 202 H Calcium 7.6 L Urine 12/09/16 Range/Units 14:35 Urine Color Yellow (Yellow) Urine Clarity Clear (Clear) Urine pH 5.5 (5.0-8.0) pH Units Ur Specific [place] > 1.030 H (1.010-1.025) Urine Protein Negative (Neg-Trace) mg/dL Urine Glucose (UA) >=1000 H (Normal) mg/dL - ABG Interpretation ABG results: PT/INR, D-dimer PT 11.6 Seconds (9.4-12.1) 12/09/16 05:32 Consult Discharge Plan - Plan Referrals: Tutu Trevino MD [Primary Care Provider] -
[2016-12-10] MEDS: *HR* HYDROcodone/Acet 5/325 mg TABLET PO PRN (20:26)
[2016-12-10] MEDS ORDERED: Insulin LISPRO 300 UNITS/3 ML VIAL SQ SCH (21:00)
[2016-12-11 04:45] LABS: Basophils % 0.2 %; Eosinophils # 0.1 K/mcL (0.0-0.6); Eosinophils % 2.1 %; Hematocrit 37.1 % (37.5-50.1); Hemoglobin 12.5 g/dL (12.9-16.9); Immature Granulocytes % 0.2 % (0-4); Lymphocytes # 2.4 K/mcL (0.6-4.6); Lymphocytes % 42.1 %; Mean Corpuscular HGB Conc 33.7 g/dL (31.6-35.5); Mean Corpuscular Hemoglobin 30.9 pg (28.0-33.3); Mean Corpuscular Volume 91.6 fL (83.0-100.0); Mean Platelet Volume 10.2 fL (9.4-12.4); Monocytes # 0.5 K/mcL (0.0-1.3); Monocytes % 7.8 %; Neutrophils # 2.7 K/mcL (1.6-8.9); Platelet Count 118 K/mcL (140-400); Red Blood Count 4.05 M/mcL (4.19-5.50); Red Cell Distribution Width 12.1 % (11.5-14.5); Segmented Neutrophils % 47.6 %
[2016-12-11 04:56] LABS: BUN/Creatinine Ratio 19 (6-26); Blood Urea Nitrogen 17 mg/dL (8-26); Calcium 7.8 mg/dL (8.6-10.8); Carbon Dioxide 24 mEq/L (19-29); Chloride 104 mEq/L (98-109); Glucose 316 mg/dL (70-99); Osmolality,Calculated 294 (280-300); Potassium 4.6 mEq/L (3.5-4.5); Sodium 135 mEq/L (136-145); eGFR For African Americans > 60 (> 60); eGFR For Non-African Americans > 60 (> 60)
[2016-12-11] MEDS: Nicotine 14 MG PATCH.TD24 TD SCH (07:59)
[2016-12-11] MEDS: Insulin LISPRO 300 UNITS/3 ML VIAL SQ SCH (07:59)
[2016-12-11] MEDS: Gabapentin 400 MG CAPSULE PO SCH (07:59)
[2016-12-11] MEDS: *HR* HYDROcodone/Acet 5/325 mg TABLET PO PRN (08:04)
[2016-12-11] MEDS: Ondansetron 4 MG/2 ML VIAL IVP PRN (08:04)
[2016-12-11 11:28] VITALS: BP 126/68
--- NOTE | 2016-12-11 11:31 | Discharge Summary ---
Date of Encounter: 12/11/16 Time of Encounter: 11:31 - Discharge Diagnosis (1) Type 1 diabetes Priority: Secondary Status: Acute Qualifiers: Diabetes mellitus complication status: with hyperglycemia Qualified Code(s) : E10.65 - Type 1 diabetes mellitus with hyperglycemia (2) DKA (diabetic ketoacidoses) Priority: Primary Status: Acute Qualifiers: Diabetes mellitus type: type 1 Diabetes mellitus complication detail: without coma Qualified Code(s): E10.10 - Type 1 diabetes mellitus with ketoacidosis without coma (3) Intractable nausea and vomiting Priority: Secondary Status: Acute Qualifiers: Vomiting type: unspecified Qualified Code(s): R11.2 - Nausea with vomiting , unspecified (4) Acute gastroenteritis Priority: Secondary Status: Acute (5) Tobacco abuse Priority: Secondary Status: Acute - Discharge Medications Prescriptions: Ondansetron [Zofran ODT] 8 mg SL Q8HR #14 tab.rapdis Acetaminophen [Acetaminophen ER] 650 mg PO Q8H PRN #30 tablet.er PRN Reason: pain Nicotine Patch [Nicoderm] 14 mg TD DAILY #30 patch.td24 Home Medications: Gabapentin [Neurontin] 1,200 mg PO TID 08/17/15 [History] Insulin Human Regular [HumuLIN R] 15 - 25 unit SQ TID 07/15/16 [History] Pantoprazole Sodium [Protonix] 40 mg PO DAILY #30 tablet. 07/19/16 [Rx] Insulin NPH, HUMAN [HumuLIN N] 50 unit SQ HS 12/09/16 [History] Acetaminophen [Acetaminophen ER] 650 mg PO Q8H PRN #30 tablet.er 12/11/16 [Rx] Nicotine Patch [Nicoderm] 14 mg TD DAILY #30 patch.td24 12/11/16 [Rx] Ondansetron [Zofran ODT] 8 mg SL Q8HR #14 tab.rapdis 12/11/16 [Rx] Allergies/Adverse Reactions: Allergies citalopram [From Celexa] Allergy (Verified 12/09/16 04:24) See Comments suicidal ideation sertraline [From Zoloft] Allergy (Verified 12/09/16 04:24) See Comments Suicidal ideation acetaminophen [From Tylenol-Codeine #3] Adverse Reaction (Verified 12/09/16 04: 24) Diarrhea codeine [From Tylenol-Codeine #3] Adverse Reaction (Verified 12/09/16 04:24) Diarrhea Date of admission: 12/09/16 11:48 Primary care physician: Tutu Trevino MD - Patient Status Disposition: Home, Self-Care Condition: Fair Functional capacity at discharge: independent ambulation Overall status at discharge: patient is progressing back to baseline - Discharge Instructions Follow Up With: Tutu Trevino MD [Primary Care Provider] - 12/14/16 10:30 am () - Diet and Activity Activity: increase activity as tolerated (The condition can return to work on .) Diet: other (Full liquid diet advanced slowly to a diabetic diet.) Hospital course: Mr. Garcia is a 30 year old male with a past medical hx of colitis tobacco abuse and type 1 DM. He states that he began having abd pain and N/v yesterday. He describes the pain as sharp and constant. It is worse prior to vomiting and eases after vomiting. He has had > 10 episode of vomiting . He has also been expereincing constipation which he states is chronic. He normally uses Radha lax for his constipation. He is unsure when he had his last BM. He is a type 1 diabetic and checks his BS however he is unable to tell me what his BS have been. He states up and down. His last episode of DKA was approx one year ago. He denies any sick contacts. He denies any ETOH/drug use. He denies any SOB CP diarrhea fever cough or chills. He presented to the ED with the above complaints .According to ED records a CT of ABD did reveal dilatation of small bowel loos and fluid filled measured up to 4cm. As well as fecal matter stasis.. Labwork revealed no leukocytosis Creatinine 1.49 gkucose 386 potassium 4.6 Na 134 cl 96. Beta hydroxinate 1.74. He was given IV fluids pain medicaitions and zofran. He was admitted for further workup and evaluation. He was diagnosed with DKA. He was started on IV fluids and DKA protocol. His anion gap closed and the next morning his insulin drip was discontinued. He started eating a diabetic diet and complained of nausea and severe epigastric pain after eating and therefore this was discontinued and he was started on a clear diet which he now tolerates better. He received several doses of IV hydromorphone for pain. Today he did not require IV pain medication. I have counseled him extensively regarding smoking cessation and the importance of controlling his diabetes better. His A1c was 8.6. He will be discharged home and was instructed to slowly advance his diet to a full liquid diet, keep well hydrated and use liquid dietary supplements for now. He was instructed to follow up closely with his primary care physician. Time spent discussing smoking cessation with patient: 3 to 10 minutes - Time Spent with Patient Total time spent providing and/or coordinating discharge services: Greater than 30 minutes (I have spent 40 minutes coordinating this discharge.) - Constitutional Vitals: Temp Pulse Resp BP Pulse Ox 98.2 F 75 15 126/68 96 12/11/16 11:24 12/11/16 07:03 12/11/16 11:24 12/11/16 11:24 12/11/16 07:03 General appearance: Present: A&O X 3, answers questions appropriately - Respiratory Respiratory exam: Present: CTAB. Absent: accessory muscle use, rales, rhonchi, wheezes - Cardiovascular Cardiovascular exam: Present: RRR, +S1, +S2. Absent: diastolic murmur, gallop, rubs, systolic murmur - GI/Abdominal GI/Abdominal exam: Present: normal bowel sounds, soft, no peritoneal signs. Absent: distended, tenderness - Extremities Exam Extremities exam: Present: warm, radial pulses palpable and symetrical. Absent : calf tenderness, cyanotic, pedal edema
== END 2016-12-11 12:30 | disposition home or self-care (01) | DRG 639 ==
LOC: 3ANU 04:22 → EMEROO 04:22 → 3ANU 09:09 → 2NNU 13:10
PROVIDERS: ADMIT Internal Medicine; ATTEND Internal Medicine

== ENCOUNTER 2017-09-01 18:32 | Inpatient (IN) ==
[2017-09-01] MEDS ORDERED: Ondansetron 4 MG/2 ML VIAL IVP ONE (18:42)
--- NOTE | 2017-09-01 18:45 | Emergency Department Note ---
START Narrative - START START: Patient is a 31-year-old white male with a history of type 1 diabetes who has come to the emergency room today due to nausea vomiting, intractable generalized abdominal cramping and elevated blood sugar reporting "I think I have DKA again". Patient states he was last hospitalized a few months ago. He denies any preceding URI symptoms, no sore throat no cough, no fevers or chills , no chest pain or palpitations, no bowel changes associated with the vomiting and no urinary symptoms or flank pain. Patient received 500 mL's of IV fluids I EMS prior to arrival. Patient actively vomiting on arrival. Labs were ordered, IV fluids continued as well as IV Zofran and patient will be signed out to the overnight stocker team for follow-up on labs and final disposition.
[2017-09-01] MEDS: 0.9 % Sodium Chloride 1,000 ML IVC SCH ×2 (19:01→20:19)
[2017-09-01 19:21] LABS: Basophils % 0.3 %; Eosinophils % 0.3 %; Hematocrit 43.7 % (37.5-50.1); Hemoglobin 14.9 g/dL (12.9-16.9); Immature Granulocytes % 0.4 % (0-4); Lymphocytes # 1.1 K/mcL (0.6-4.6); Lymphocytes % 9.2 %; Mean Corpuscular HGB Conc 34.1 g/dL (31.6-35.5); Mean Corpuscular Hemoglobin 30.1 pg (28.0-33.3); Mean Corpuscular Volume 88.3 fL (83.0-100.0); Mean Platelet Volume 10.2 fL (9.4-12.4); Monocytes # 0.7 K/mcL (0.0-1.3); Monocytes % 5.7 %; Neutrophils # 10.4 K/mcL (1.6-8.9); Platelet Count 167 K/mcL (140-400); Red Blood Count 4.95 M/mcL (4.19-5.50); Red Cell Distribution Width 12.3 % (11.5-14.5); Segmented Neutrophils % 84.1 %
[2017-09-01 19:33] LABS: Alanine Aminotransferase 21 Units/L (0-55); Albumin 4.2 g/dL (3.5-5.0); Albumin/Globulin Ratio 1.6 (1.1-2.2); Alkaline Phosphatase 86 Units/L (38-126); Aspartate Amino Transferase 18 Units/L (5-34); BUN/Creatinine Ratio 15 (6-26); Bilirubin,Total 1.3 mg/dL (0.2-1.2); Blood Urea Nitrogen 25 mg/dL (8-26); Calcium 9.5 mg/dL (8.6-10.8); Carbon Dioxide 20 mEq/L (19-29); Chloride 98 mEq/L (98-109); Globulin 2.6 g/dL (2.4-3.5); Glucose 497 mg/dL (70-99); Magnesium 1.6 mg/dL (1.6-2.6); Osmolality,Calculated 309 (280-300); Potassium 4.7 mEq/L (3.5-4.5); Sodium 136 mEq/L (136-145); Total Protein 6.8 g/dL (6.0-8.3); eGFR For African Americans 58 (> 60); eGFR For Non-African Americans 48 (> 60)
--- NOTE | 2017-09-01 19:40 | Emergency Department Note ---
Disposition Clinical Impression: DKA, type 1 Qualifiers: Diabetes mellitus complication detail: without coma Qualified Code(s): E10.10 - Type 1 diabetes mellitus with ketoacidosis without coma DKA (diabetic ketoacidoses) Qualifiers: Diabetes mellitus type: type 1 Diabetes mellitus complication detail: without coma Qualified Code(s): E10.10 - Type 1 diabetes mellitus with ketoacidosis without coma Disposition: Admitted As Inpatient Condition: Fair Referrals: Tutu Trevino MD [Primary Care Provider] - Time of Disposition: 21:37 Nausea/Vomiting/Diarrhea HPI - General Chief complaint: ED Nausea/Vomiting/Diarrhea Stated complaint: DKA Time Seen by Provider: 09/01/17 18:35 Source: EMS Limitations: no limitations Nursing Notes Reviewed: Yes Vital Signs Reviewed: Yes - History of Present Illness HPI Narrative: 31-year-old male presents emergency Department with history of type 1 diabetes presenting with body aches as well as nausea vomiting since earlier this afternoon. See his been doing well yesterday as well as earlier today also since her getting nauseous and vomiting. Patient does have an insulin pump that said has been working well. He is due to change his pump injector at approximately 2200 tonight. He changes it every 3 days. He has had DKA before but he states at least 6 months to years since his last event since they started him on this new pump he has done very well with controlling his sugars. Patient does use a sliding scale when he gives his bolus insulin. He has gotten a total of 19 units basal insulin and 17 units bolus today. Last dose was given at 1500 today was 3 unit bolus. The patient otherwise is having no sicknesses leading up to this including nausea vomiting, pain with urination, constipation, headaches, chest pain, shortness of breath, neck pain, back pain, headaches, pain or tenderness of the arms or legs. He is nauseous and did vomit nonbilious nonbloody today. He is having generalized body aches. And generalized weakness today. Otherwise no complaints. - Related Data Home Medications Medication Instructions Recorded Confirmed Gabapentin [Neurontin] 1,200 mg PO TID 08/17/15 12/09/16 Insulin Human Regular [HumuLIN R] 15 - 25 unit SQ TID 07/15/16 12/09/16 Insulin NPH, HUMAN [HumuLIN N] 50 unit SQ HS 12/09/16 12/09/16 Previous Rx's Medication Instructions Recorded Pantoprazole Sodium [Protonix] 40 mg PO DAILY #30 tablet. 07/19/16 Acetaminophen [Acetaminophen ER] 650 mg PO Q8H PRN #30 tablet.er 12/11/16 Nicotine Patch [Nicoderm] 14 mg TD DAILY #30 patch.td24 12/11/16 Ondansetron [Zofran ODT] 8 mg SL Q8HR #14 tab.rapdis 12/11/16 Albuterol Sulfate [Albuterol 1 puff IH Q4HR PRN #1 puff 02/14/17 Inhaler] Clindamycin HCl 300 mg PO TID #30 capsule 03/17/17 Diclofenac Potassium 50 mg PO TID PRN #20 tablet 03/17/17 Fluticasone Propionate Nasal 120 spray NS DAILY #1 bottle 03/17/17 [Flonase] Ondansetron ODT [Zofran ODT] 4 mg SL Q6HR PRN #20 tab.rapdis 03/26/17 Ondansetron ODT [Zofran ODT] 4 mg SL Q6HR PRN #20 tab.rapdis 03/26/17 Allergies Allergy/AdvReac Type Severity Reaction Status Date / Time citalopram [From Celexa] Allergy See Verified 09/01/17 18:34 Comments sertraline [From Zoloft] Allergy See Verified 09/01/17 18:34 Comments codeine AdvReac Diarrhea Verified 09/01/17 18:34 [From Tylenol-Codeine #3] morphine AdvReac Nausea Verified 09/01/17 18:34 Review of Systems: 10 point review of systems done and negative unless otherwise stated in history of present illness. All systems ED: reviewed and negative except as stated. Review of Systems: As Per HPI Past Medical History - Past Medical History Attestation: Yes The following information was validated with the patient. Medical history: Reports: diabetes, other Surgical history: Reports: no surgical history Psychiatric history: Reports: depression - Social History Smoking Status: Current every day smoker Smokeless Tobacco Status: No Alcohol use: Reports: none Drug use: Reports: none Physical Exam - General Limitations: no limitations General appearance: alert, lethargic - Head Head exam: atraumatic, normocephalic, normal inspection - Eye Eye exam: Present: normal appearance, PERRL, EOMI - ENT ENT exam: normal exam, normal oropharynx, mucous membranes moist - Neck Neck exam: Present: normal inspection, full ROM, trachea midline - Chest Chest inspection: Present: normal inspection, symmetric chest wall rise - Respiratory Respiratory exam: Present: normal lung sounds bilaterally. Absent: respiratory distress, wheezes - Cardiovascular Cardiovascular exam: Present: regular rate, normal rhythm, normal heart sounds - Abdominal Exam Abdominal exam: Present: soft, tenderness, normal bowel sounds. Absent: distention, guarding, rebound, rigidity Abdominal tenderness: Present: diffuse, mild - Extremities Exam Extremities exam: Present: normal inspection, full ROM. Absent: tenderness, pedal edema - Back Exam Back exam: Present: normal inspection, full ROM. Absent: tenderness, CVA tenderness (R), CVA tenderness (L) - Neurological Exam Neurological exam: Present: alert, oriented X3 - Skin Skin exam: Present: warm, dry, intact, normal color Course Course Narrative: 31-year-old male presents to emergency department for most likely DKA. He is a type I diabetic does have an insulin pump. We will get normal DKA labs and give him 3 L normal saline via IV. We will get CBC, BMP, VBG, beta hydroxybutyrate, urinalysis as well as chest x-ray and EKG. We will also order lactate. Patient's okay with this plan. Vital Signs Temperature 97.8 F 09/01/17 18:34 Pulse Rate 119 09/01/17 18:34 Respiratory Rate 18 09/01/17 18:34 Blood Pressure 131/51 09/01/17 18:34 O2 Sat by Pulse Oximetry 95 09/01/17 18:34 Temperature 97.8 F 09/01/17 18:34 Pulse Rate 118 09/01/17 21:54 Respiratory Rate 20 09/01/17 21:54 Blood Pressure 138/65 09/01/17 21:54 O2 Sat by Pulse Oximetry 96 09/01/17 21:54 Oxygen Delivery Oxygen Delivery Room Air Nausea/Vomiting/Diarrhea - [facility] Narrative Medical decision making narrative: 31-year-old male history type 1 diabetes on an insulin pump is electronic presented to the emergency department complaining of nausea vomiting not feeling well as well as generalized body aches. Did get chest x-ray and basic labs. Patient did show he is in DKA today Gap of 18. He had a elevated potassiums were not tested at this time. Albumin of 3 L of IV fluids as well as starting an insulin drip. Patient also was acidotic based on the ABG is 7.2. There is no other preceding events that could have caused this this could have been due to a faulty insulin pump. He is due to change it at 10:00 tonight. I told him to remove it and keep it off until he gets discharged. Family is okay with this plan. I spoke with the hospitalist, Dr. Cardenas who agreed to admit the patient to their service. Patient is now admitted to the hospitalist service in stable condition and family agree to this plan. Chest X-Ray 09/01/17 18:35 IMPRESSION: No acute process. D/ / Bunny Mckinnon MD / Bunny Mckinnon MD Interpreting Provider: Bunny Mckinnon MD - Medical Records Medical records reviewed: Yes I reviewed the patient's medical records. - Lab Data Lab results reviewed: Yes I reviewed the patient's lab results. Result diagrams: 09/01/17 18:58 09/01/17 18:58 Lab Results 09/01/17 09/01/17 09/01/17 Range/Units 18:36 18:37 18:58 WBC 12.4 H (4.3-11.1) K/mcL RBC 4.95 (4.19-5.50) M/mcL Hgb 14.9 (12.9-16.9) g/dL Hct 43.7 (37.5-50.1) % MCV 88.3 (83.0-100.0) fL MCH 30.1 (28.0-33.3) pg MCHC 34.1 (31.6-35.5) g/dL RDW 12.3 (11.5-14.5) % Plt Count 167 (140-400) K/mcL MPV 10.2 (9.4-12.4) fL Immature Gran % 0.4 (0-4) % Seg Neutrophils % 84.1 % Lymphocytes % 9.2 % Monocytes % 5.7 % Eosinophils % 0.3 % Basophils % 0.3 % Neutrophils # 10.4 H (1.6-8.9) K/mcL Lymphocytes # 1.1 (0.6-4.6) K/mcL Monocytes # 0.7 (0.0-1.3) K/mcL Eosinophils # 0.0 (0.0-0.6) K/mcL Basophils # 0.0 (0.0-0.2) K/mcL VBG pH (7.32-7.42) pH Units VBG pCO2 (41-51) mmHg VBG pO2 (25-50) mmHg VBG HCO3 (21-27) mEq/L Sodium (136-145) mEq/L Potassium (3.5-4.5) mEq/L Chloride (98-109) mEq/L Carbon Dioxide (19-29) mEq/L BUN (8-26) mg/dL Creatinine (0.72-1.25) mg/dL Est GFR ( Amer) (> 60) Est GFR (Non-Af Amer) (> 60) BUN/Creatinine Ratio (6-26) Glucose (70-99) mg/dL POC Glucose 411 H* 398 H (58-89) Calculated Osmolality (280-300) Lactic Acid (0.5-2.2) mmol/L Calcium (8.6-10.8) mg/dL Magnesium (1.6-2.6) mg/dL Total Bilirubin (0.2-1.2) mg/dL AST (5-34) Units/L ALT (0-55) Units/L Alkaline Phosphatase (38-126) Units/L Serum Total Protein (6.0-8.3) g/dL Albumin (3.5-5.0) g/dL Globulin (2.4-3.5) g/dL Albumin/Globulin Ratio (1.1-2.2) Beta-Hydroxybutyric Acd (0.02-0.27) mmol/L 09/01/17 09/01/17 09/01/17 Range/Units 18:58 18:58 19:42 WBC (4.3-11.1) K/mcL RBC (4.19-5.50) M/mcL Hgb (12.9-16.9) g/dL Hct (37.5-50.1) % MCV (83.0-100.0) fL MCH (28.0-33.3) pg MCHC (31.6-35.5) g/dL RDW (11.5-14.5) % Plt Count (140-400) K/mcL MPV (9.4-12.4) fL Immature Gran % (0-4) % Seg Neutrophils % % Lymphocytes % % Monocytes % % Eosinophils % % Basophils % % Neutrophils # (1.6-8.9) K/mcL Lymphocytes # (0.6-4.6) K/mcL Monocytes # (0.0-1.3) K/mcL Eosinophils # (0.0-0.6) K/mcL Basophils # (0.0-0.2) K/mcL VBG pH 7.27 L (7.32-7.42) pH Units VBG pCO2 56 H (41-51) mmHg VBG pO2 56 H (25-50) mmHg VBG HCO3 26 (21-27) mEq/L Sodium 136 (136-145) mEq/L Potassium 4.7 H (3.5-4.5) mEq/L Chloride 98 (98-109) mEq/L Carbon Dioxide 20 (19-29) mEq/L BUN 25 (8-26) mg/dL Creatinine 1.71 H (0.72-1.25) mg/dL Est GFR ( Amer) 58 L (> 60) Est GFR (Non-Af Amer) 48 L (> 60) BUN/Creatinine Ratio 15 (6-26) Glucose 497 H (70-99) mg/dL POC Glucose (58-89) Calculated Osmolality 309 H (280-300) Lactic Acid 1.8 (0.5-2.2) mmol/L Calcium 9.5 (8.6-10.8) mg/dL Magnesium 1.6 (1.6-2.6) mg/dL Total Bilirubin 1.3 H (0.2-1.2) mg/dL AST 18 (5-34) Units/L ALT 21 (0-55) Units/L Alkaline Phosphatase 86 (38-126) Units/L Serum Total Protein 6.8 (6.0-8.3) g/dL Albumin 4.2 (3.5-5.0) g/dL Globulin 2.6 (2.4-3.5) g/dL Albumin/Globulin Ratio 1.6 (1.1-2.2) Beta-Hydroxybutyric Acd > 2.00 H (0.02-0.27) mmol/L 09/01/17 09/01/17 Range/Units 20:51 21:29 WBC (4.3-11.1) K/mcL RBC (4.19-5.50) M/mcL Hgb (12.9-16.9) g/dL Hct (37.5-50.1) % MCV (83.0-100.0) fL MCH (28.0-33.3) pg MCHC (31.6-35.5) g/dL RDW (11.5-14.5) % Plt Count (140-400) K/mcL MPV (9.4-12.4) fL Immature Gran % (0-4) % Seg Neutrophils % % Lymphocytes % % Monocytes % % Eosinophils % % Basophils % % Neutrophils # (1.6-8.9) K/mcL Lymphocytes # (0.6-4.6) K/mcL Monocytes # (0.0-1.3) K/mcL Eosinophils # (0.0-0.6) K/mcL Basophils # (0.0-0.2) K/mcL VBG pH (7.32-7.42) pH Units VBG pCO2 (41-51) mmHg VBG pO2 (25-50) mmHg VBG HCO3 (21-27) mEq/L Sodium (136-145) mEq/L Potassium (3.5-4.5) mEq/L Chloride (98-109) mEq/L Carbon Dioxide (19-29) mEq/L BUN (8-26) mg/dL Creatinine (0.72-1.25) mg/dL Est GFR ( Amer) (> 60) Est GFR (Non-Af Amer) (> 60) BUN/Creatinine Ratio (6-26) Glucose (70-99) mg/dL POC Glucose 344 H 353 H (58-89) Calculated Osmolality (280-300) Lactic Acid (0.5-2.2) mmol/L Calcium (8.6-10.8) mg/dL Magnesium (1.6-2.6) mg/dL Total Bilirubin (0.2-1.2) mg/dL AST (5-34) Units/L ALT (0-55) Units/L Alkaline Phosphatase (38-126) Units/L Serum Total Protein (6.0-8.3) g/dL Albumin (3.5-5.0) g/dL Globulin (2.4-3.5) g/dL Albumin/Globulin Ratio (1.1-2.2) Beta-Hydroxybutyric Acd (0.02-0.27) mmol/L - Radiology Data Radiology results reviewed: Yes I reviewed the patient's radiology results. - EKG Data EKG attestation: Yes I reviewed and interpreted this EKG. EKG results narrative: EKG done at 1853 view myself and attending shows sinus tachycardia rate of 116, NC interval 128, QRS 92, QTC 374 with a normal axis. There is no acute ST changes, no acute T-wave abnormalities, no signs of any hypertrophy or heart strength, no signs of any heart block, no signs of WPW/Brugada syndrome. This is unchanged by soft old EKG done 03/26/17. Attestation Statement - Attestation Attestation: I examined this patient and my medical decision-making was reviewed with the Resident Physician. I agree with the documented findings, disposition and treatment plan as described except to the extent set forth below. Patient to ED with nausea vomiting and high blood sugars. Patient is a type I diabetic. Denies fever. Denies cough. Exam shows somewhat dry mucous membranes. Tachycardic. Abdomen soft. Plan. Patient with an increased anion gap. Acidotic. Elevated beta hydroxybutyrate. He received 2 L of IV fluids. Insulin drip and admitted. 40 minutes of critical care exclusive of separately billable procedures.
[2017-09-01 19:46] LABS: VBG HCO3 26 mEq/L (21-27); VBG PCO2 56 mmHg (41-51); VBG PH 7.27 pH Units (7.32-7.42); VBG PO2 56 mmHg (25-50)
[2017-09-01] MEDS ORDERED: *HR* Promethazine 25 MG/ML VIAL IVP ONE (19:58)
[2017-09-01] MEDS ORDERED: 0.9 % Sodium Chloride 1,000 ML IVC ONE ×2 (20:06)
[2017-09-01] MEDS ORDERED: *HR* Dextrose 50 % in Water (Syg) 50 ML SYRINGE IVP PRN ×2 (20:07→22:17)
[2017-09-01] MEDS ORDERED: Insulin Human Regular 100 UNIT in 0.9 % Sodium Chloride 100 ML IVC SCH ×2 (20:15→23:15)
[2017-09-01 21:09] LABS: Beta-Hydroxybutyric Acid > 2.00 mmol/L (0.02-0.27)
[2017-09-01] MEDS ORDERED: Naloxone 0.4 MG/ML INJ IVP PRN (22:15)
[2017-09-01] MEDS ORDERED: Insulin Regular, Human 100 UNIT/ML IV PRN (22:17)
--- NOTE | 2017-09-01 22:21 | Internal Med History&Physical ---
Date of Encounter: 09/01/17 Time of Encounter: 22:19 Assessment and Plan (1) DKA (diabetic ketoacidoses) Current visit: Yes Status: Acute mild acidosis admit for DKA protocol insulin gtt with electrolyte and CBG check blood cx pend from the ED, no evidence of infectious source as current, to watch and monitor inpatient course closely consumer educator check insulin pump to ensure no malfunction Qualifiers: Diabetes mellitus type: type 1 Diabetes mellitus complication detail: without coma Qualified Code(s): E10.10 - Type 1 diabetes mellitus with ketoacidosis without coma (2) Type 1 diabetes Current visit: No Status: Acute insulin above Qualifiers: Diabetes mellitus complication status: with ketoacidosis Qualified Code(s) : E10.10 - Type 1 diabetes mellitus with ketoacidosis without coma (3) Psoriasis Current visit: Yes Status: Acute stable Internal Medicine - H&P: HPI Chief complaint: N/V/Somnolence History of present illness: Mr. Garcia is a 31 year old male presents with DKA. He is a TYPE 1 DM dx 10 years ago. He has an insulin pump being managed by PCP Dr Trevino. He has been in good health until today. He went to work ok this morning but developed nausea and emesis - billious, non-bloody this afternoon and had to come back home early. He is more fatigue , drowsy and tired. Review noted sore throat a couple of days ago. His last DKA was Jun last year. There were some concerns whether his insulin pump had malfunctioned. EKG reviewed with rate 116, sinus tachycardia XR/XR chest 1V portable IMPRESSION: No acute process. Past Med Surg Social Fam HX - Past Medical History Medical history: diabetes, other Psychiatric history: depression - Past Surgical History Surgical History: no surgical history - Social History Smoking Status: Current every day smoker Smokeless Tobacco Status: No Alcohol use: none Drug use: none Internal Medicine - H&P: Meds Gabapentin [Neurontin] 1,200 mg PO TID 08/17/15 [History] Insulin Human Regular [HumuLIN R] 15 - 25 unit SQ TID 07/15/16 [History] Pantoprazole Sodium [Protonix] 40 mg PO DAILY #30 tablet. 07/19/16 [Rx] Insulin NPH, HUMAN [HumuLIN N] 50 unit SQ HS 12/09/16 [History] Acetaminophen [Acetaminophen ER] 650 mg PO Q8H PRN #30 tablet.er 12/11/16 [Rx] Nicotine Patch [Nicoderm] 14 mg TD DAILY #30 patch.td24 12/11/16 [Rx] Ondansetron [Zofran ODT] 8 mg SL Q8HR #14 tab.rapdis 12/11/16 [Rx] Albuterol Sulfate [Albuterol Inhaler] 1 puff IH Q4HR PRN #1 puff 02/14/17 [Rx] Clindamycin HCl 300 mg PO TID #30 capsule 03/17/17 [Rx] Diclofenac Potassium 50 mg PO TID PRN #20 tablet 03/17/17 [Rx] Fluticasone Propionate Nasal [Flonase] 120 spray NS DAILY #1 bottle 03/17/17 [Rx ] Ondansetron ODT [Zofran ODT] 4 mg SL Q6HR PRN #20 tab.rapdis 03/26/17 [Rx] Ondansetron ODT [Zofran ODT] 4 mg SL Q6HR PRN #20 tab.rapdis 03/26/17 [Rx] 3 Allergy/AdvReac Type Severity Reaction Status Date / Time citalopram [From Celexa] Allergy See Verified 09/01/17 18:34 Comments sertraline [From Zoloft] Allergy See Verified 09/01/17 18:34 Comments codeine AdvReac Diarrhea Verified 09/01/17 18:34 [From Tylenol-Codeine #3] morphine AdvReac Nausea Verified 09/01/17 18:34 All Systems PM: A 10-system review of systems was performed and is negative for pertinent findings except as documented above in the HPI. Review of systems: ROS 14 point review of systems reviewed as best as possible given presentation. Pertinent positive or negative as per HPI or otherwise reviewed as negative - Constitutional Vitals: Temp Pulse Resp BP Pulse Ox 97.8 F 118 20 138/65 96 09/01/17 18:34 09/01/17 21:54 09/01/17 21:54 09/01/17 21:54 09/01/17 21:54 Exam: General - Somnolent Eyes - JAJA. Eye lids intact. No scleral icterus Neuro - Somnolent Heart - Sinus. RRR. S1 and S2 present. No added HS/murmurs appreciated. No elevated JVD appreciated. Lung - Adequate air entry b/l, No crackles/wheezes appreciated GI - Soft, non-tender. No hepatosplenomegaly/ascites. BS+ - No CVA/suprapubic tenderness or palpable bladder distension Skin - Intact. Psoriasis plaques. No petechiae/ecchymosis. Warm extremities MSK - Joints with normal ROM. No joint swellings Internal Med - H&P Results - Labs CBC & Chem 7: 09/01/17 18:58 09/01/17 18:58
[2017-09-01] MEDS ORDERED: 0.9 % Sodium Chloride 1,000 ML IVC SCH (22:30)
[2017-09-01] MEDS ORDERED: D5% in 0.45% NACL w KCl 20 MEQ/1,000 ML MLS IVC PRN (22:45)
[2017-09-01] MEDS ORDERED: 0.45 % Sodium Chloride w/KCl 20 MEQ/1,000 ML MLS IVC PRN (22:45)
[2017-09-01] MEDS ORDERED: D5% in 0.45% NACL 1,000 ML IVC PRN (22:45)
[2017-09-01] MEDS ORDERED: 0.9 % Sodium Chloride 1,000 ML IVC PRN (22:45)
[2017-09-01] MEDS ORDERED: 0.9 % Sodium Chloride w KCl 20 MEQ/1,000 ML MLS IVC ONE (22:48)
[2017-09-02 00:53] LABS: Basophils % 0.2 %; Hematocrit 37.5 % (37.5-50.1); Immature Granulocytes % 0.2 % (0-4); Lymphocytes % 7.8 %; Mean Corpuscular HGB Conc 34.1 g/dL (31.6-35.5); Mean Corpuscular Hemoglobin 29.9 pg (28.0-33.3); Mean Corpuscular Volume 87.6 fL (83.0-100.0); Mean Platelet Volume 9.5 fL (9.4-12.4); Monocytes # 0.6 K/mcL (0.0-1.3); Monocytes % 4.9 %; Platelet Count 143 K/mcL (140-400); Red Blood Count 4.28 M/mcL (4.19-5.50); Red Cell Distribution Width 12.2 % (11.5-14.5); Segmented Neutrophils % 86.9 %
[2017-09-02 00:56] LABS: Hemoglobin 12.8 g/dL (12.9-16.9)
[2017-09-02 01:04] LABS: VBG HCO3 26 mEq/L (21-27); VBG PCO2 50 mmHg (41-51); VBG PH 7.33 pH Units (7.32-7.42); VBG PO2 193 mmHg (25-50)
[2017-09-02 01:07] LABS: Alanine Aminotransferase 18 Units/L (0-55); Albumin 3.5 g/dL (3.5-5.0); Albumin/Globulin Ratio 1.8 (1.1-2.2); Alkaline Phosphatase 68 Units/L (38-126); Aspartate Amino Transferase 16 Units/L (5-34); BUN/Creatinine Ratio 18 (6-26); Bilirubin,Direct 0.3 mg/dL (0.0-0.5); Bilirubin,Indirect 0.4 mg/dL (0.0-1.2); Bilirubin,Total 0.7 mg/dL (0.2-1.2); Blood Urea Nitrogen 23 mg/dL (8-26); Calcium 8.7 mg/dL (8.6-10.8); Carbon Dioxide 26 mEq/L (19-29); Chloride 110 mEq/L (98-109); Glucose 171 mg/dL (70-99); Osmolality,Calculated 304 (280-300); Potassium 4.2 mEq/L (3.5-4.5); Sodium 143 mEq/L (136-145); Total Protein 5.5 g/dL (6.0-8.3); eGFR For African Americans > 60 (> 60); eGFR For Non-African Americans > 60 (> 60)
[2017-09-02] MEDS ORDERED: D5% in Water 1,000 ML IVC PRN (01:37)
[2017-09-02] MEDS: 0.9 % Sodium Chloride 1,000 ML IVC SCH ×4 (01:50→22:09)
[2017-09-02] MEDS: Insulin LISPRO 300 UNITS/3 ML VIAL SQ SCH ×5 (04:28→20:49)
[2017-09-02 08:11] LABS: BUN/Creatinine Ratio 19 (6-26); Blood Urea Nitrogen 21 mg/dL (8-26); Calcium 8.3 mg/dL (8.6-10.8); Carbon Dioxide 23 mEq/L (19-29); Chloride 108 mEq/L (98-109); Glucose 181 mg/dL (70-99); Osmolality,Calculated 298 (280-300); Potassium 4.2 mEq/L (3.5-4.5); Sodium 140 mEq/L (136-145); eGFR For African Americans > 60 (> 60); eGFR For Non-African Americans > 60 (> 60)
[2017-09-02] MEDS ORDERED: Insulin NPH 100 UNIT/ML (x5UNIT) SQ SCH (09:00)
[2017-09-02] MEDS ORDERED: Chloraseptic Spray 177 ML BOTTLE MM PRN (10:46)
--- NOTE | 2017-09-02 10:50 | Internal Med Progress Note ---
Date of Encounter: 09/02/17 Time of Encounter: 10:45 - Assessment and plan (1) DKA, type 1 Current Visit: Yes Status: Resolved Assessment and plan: DKA resolved pt restarted on home insulin pump along with sliding scale insulin algorithm pt reports of weakness, and still unable to tolerate PO intake due to sore throat likely d/c in am if clinically improves Qualifiers: Diabetes mellitus complication detail: without coma Qualified Code(s): E10.10 - Type 1 diabetes mellitus with ketoacidosis without coma (2) Leukocytosis, unspecified Current Visit: Yes Status: Acute Assessment and plan: no clinical signs of infectious etiology present f/u blood cultures pt afebrile will continue to monitor off abx Qualifiers: Leukocytosis type: unspecified Qualified Code(s): D72.829 - Elevated white blood cell count, unspecified (3) Type 1 diabetes Current Visit: No Status: Chronic Assessment and plan: continue home dose of insulin (insulin pump-family to bring in the pump) sliding scale insulin algorithm monitor fingerstick and blood glucose ADA diet Qualifiers: Diabetes mellitus complication status: with ketoacidosis Qualified Code(s) : E10.10 - Type 1 diabetes mellitus with ketoacidosis without coma (4) Sore throat Current Visit: No Status: Acute Assessment and plan: secondary to vomiting prior to hospitalization chloraseptic spray prn (5) DVT prophylaxis Current Visit: No Status: Acute Assessment and plan: Heparin SQ - Subjective Interval history: Patient seen and examined at bedside. Resting in bed with family present at bedside. Reports of feeling better compared to previous day but states because of the vomiting, his throat is hurting and is not able to tolerate much PO intake due to the pain. Reports of only taking insulin through his insulin pump at home. Denies any nausea or vomiting at this time. - Constitutional Vitals: Temp Pulse Resp BP Pulse Ox 99.3 F 108 17 108/52 94 09/02/17 06:40 09/02/17 08:25 09/02/17 06:40 09/02/17 06:40 09/02/17 06:40 General appearance: Present: cooperative, A&O X 3, pleasant, no acute distress, answers questions appropriately - Head Head exam: Present: atraumatic, normocephalic - Eye Eye exam: Present: conjuntiva pink, sclera anicteric - Respiratory Respiratory exam: Present: CTAB. Absent: accessory muscle use, rales, rhonchi, wheezes - Cardiovascular Cardiovascular exam: Present: +S1, +S2, tachycardia. Absent: diastolic murmur, gallop, rubs, systolic murmur - GI/Abdominal GI/Abdominal exam: Present: normal bowel sounds, soft, no peritoneal signs. Absent: distended, tenderness - Extremities Exam Extremities exam: Present: warm, radial pulses palpable and symmetrical. Absent : calf tenderness, cyanotic, pedal edema - Neurological Exam Neurological exam: Present: alert, oriented X3 - Psychiatric Psychiatric exam: Present: normal affect, normal mood Internal Medicine: Result - Labs CBC & Chem 7: 09/02/17 00:42 09/02/17 07:48 Labs: Short CBC 09/02/17 Range/Units 00:42 WBC 12.6 H (4.3-11.1) K/mcL Hgb 12.8 L D (12.9-16.9) g/dL Hct 37.5 (37.5-50.1) % Plt Count 143 (140-400) K/mcL Neutrophils # 11.0 H (1.6-8.9) K/mcL BMP 09/02/17 09/02/17 00:42 07:48 Sodium 143 D 140 Potassium 4.2 4.2 Chloride 110 H 108 Carbon Dioxide 26 23 BUN 23 21 Creatinine 1.28 H 1.10 Glucose 171 H 181 H Calcium 8.7 8.3 L Liver Function 09/02/17 Range/Units 00:42 Total Bilirubin 0.7 (0.2-1.2) mg/dL Direct Bilirubin 0.3 (0.0-0.5) mg/dL AST 16 (5-34) Units/L ALT 18 (0-55) Units/L Alkaline Phosphatase 68 (38-126) Units/L Albumin 3.5 (3.5-5.0) g/dL Consult Discharge Plan - Plan Referrals: Tutu Trevino MD [Primary Care Provider] -
[2017-09-02] MEDS: *HR* Heparin 5,000 UNIT/ML VIAL SQ SCH (18:09)
[2017-09-02] MEDS: Ondansetron 4 MG/2 ML VIAL IVP PRN (20:44)
[2017-09-03] MEDS: Insulin LISPRO 300 UNITS/3 ML VIAL SQ SCH ×6 (00:05→21:23)
[2017-09-03] MEDS: Ondansetron 4 MG/2 ML VIAL IVP PRN ×2 (05:03→12:48)
[2017-09-03 05:24] LABS: Basophils % 0.3 %; Eosinophils # 0.1 K/mcL (0.0-0.6); Eosinophils % 0.5 %; Hematocrit 39.7 % (37.5-50.1); Hemoglobin 13.5 g/dL (12.9-16.9); Immature Granulocytes % 0.3 % (0-4); Lymphocytes # 1.5 K/mcL (0.6-4.6); Mean Corpuscular Hemoglobin 29.7 pg (28.0-33.3); Mean Corpuscular Volume 87.4 fL (83.0-100.0); Mean Platelet Volume 9.7 fL (9.4-12.4); Monocytes # 0.5 K/mcL (0.0-1.3); Monocytes % 4.7 %; Neutrophils # 8.8 K/mcL (1.6-8.9); Platelet Count 144 K/mcL (140-400); Red Blood Count 4.54 M/mcL (4.19-5.50); Red Cell Distribution Width 11.9 % (11.5-14.5); Segmented Neutrophils % 80.2 %
[2017-09-03 05:35] LABS: Magnesium 1.4 mg/dL (1.6-2.6); Phosphorous 2.8 mg/dL (2.3-4.7)
[2017-09-03 05:38] LABS: Alanine Aminotransferase 16 Units/L (0-55); Albumin 3.1 g/dL (3.5-5.0); Albumin/Globulin Ratio 1.3 (1.1-2.2); Alkaline Phosphatase 68 Units/L (38-126); Aspartate Amino Transferase 14 Units/L (5-34); BUN/Creatinine Ratio 18 (6-26); Bilirubin,Direct 0.3 mg/dL (0.0-0.5); Bilirubin,Indirect 0.4 mg/dL (0.0-1.2); Bilirubin,Total 0.7 mg/dL (0.2-1.2); Blood Urea Nitrogen 14 mg/dL (8-26); Calcium 8.3 mg/dL (8.6-10.8); Carbon Dioxide 23 mEq/L (19-29); Chloride 106 mEq/L (98-109); Globulin 2.3 g/dL (2.4-3.5); Glucose 236 mg/dL (70-99); Osmolality,Calculated 298 (280-300); Potassium 4.6 mEq/L (3.5-4.5); Sodium 140 mEq/L (136-145); Total Protein 5.4 g/dL (6.0-8.3); eGFR For African Americans > 60 (> 60); eGFR For Non-African Americans > 60 (> 60)
[2017-09-03] MEDS: *HR* Heparin 5,000 UNIT/ML VIAL SQ SCH ×2 (06:00→16:55)
[2017-09-03] MEDS ORDERED: Pseudoephedrine Oral Soln 30 MG/5 ML UDC PO PRN (09:42)
[2017-09-03] MEDS ORDERED: GI Cocktail 40 ML EACH PO ONE (09:42)
--- NOTE | 2017-09-03 09:45 | Internal Med Progress Note ---
Date of Encounter: 09/03/17 Time of Encounter: 09:35 - Assessment and plan (1) DKA, type 1 Current Visit: Yes Status: Resolved Assessment and plan: DKA resolved pt restarted on home insulin pump along with accuchecks pt reports of weakness, and still unable to tolerate PO intake due to sore throat Chloraseptic spray prn will provide GI cocktail x 1 dose likely d/c in am if clinically improves Qualifiers: Diabetes mellitus complication detail: without coma Qualified Code(s): E10.10 - Type 1 diabetes mellitus with ketoacidosis without coma (2) Leukocytosis, unspecified Current Visit: Yes Status: Resolved Qualifiers: Leukocytosis type: unspecified Qualified Code(s): D72.829 - Elevated white blood cell count, unspecified (3) Type 1 diabetes Current Visit: No Status: Chronic Assessment and plan: continue home dose of insulin (insulin pump) monitor fingerstick and blood glucose ADA diet Qualifiers: Diabetes mellitus complication status: with ketoacidosis Qualified Code(s) : E10.10 - Type 1 diabetes mellitus with ketoacidosis without coma (4) Sore throat Current Visit: No Status: Acute Assessment and plan: secondary to vomiting prior to hospitalization chloraseptic spray prn (5) DVT prophylaxis Current Visit: No Status: Acute Assessment and plan: Heparin SQ (6) Hypomagnesemia Current Visit: Yes Status: Acute Assessment and plan: Mg supplemented continue to monitor electrolytes and replace as needed - Subjective Interval history: Patient seen and examined at bedside. Resting in bed and still continues to have sore throat and reports of nasal congestion. States he has not been able to tolerate much PO intake due to the pain. Also noted to have persistent tachycardia. Denies any chest pain or shortness of breath. Will start supportive care for congestion and pain control tentative d/c in am once able to tolerate adequate PO intake Pt currently using his home insulin pump - Constitutional Vitals: Temp Pulse Resp BP Pulse Ox 98.5 F 87 16 136/83 95 09/03/17 07:22 09/03/17 07:22 09/03/17 07:22 09/03/17 07:22 09/03/17 07:22 General appearance: Present: cooperative, A&O X 3, pleasant, no acute distress, answers questions appropriately - Head Head exam: Present: atraumatic, normocephalic - Eye Eye exam: Present: conjuntiva pink, sclera anicteric - Respiratory Respiratory exam: Absent: respiratory distress, wheezes - Cardiovascular Cardiovascular exam: Present: +S1, +S2, tachycardia. Absent: diastolic murmur, systolic murmur - GI/Abdominal GI/Abdominal exam: Present: normal bowel sounds, soft, no peritoneal signs. Absent: distended, tenderness - Extremities Exam Extremities exam: Present: warm, radial pulses palpable and symmetrical. Absent : calf tenderness, cyanotic, pedal edema - Neurological Exam Neurological exam: Present: alert, oriented X3 Internal Medicine: Result - Labs CBC & Chem 7: 09/03/17 05:15 09/03/17 05:15 Labs: Short CBC 09/03/17 Range/Units 05:15 WBC 11.0 (4.3-11.1) K/mcL Hgb 13.5 (12.9-16.9) g/dL Hct 39.7 (37.5-50.1) % Plt Count 144 (140-400) K/mcL Neutrophils # 8.8 (1.6-8.9) K/mcL BMP 09/03/17 05:15 Sodium 140 Potassium 4.6 H Chloride 106 Carbon Dioxide 23 BUN 14 Creatinine 0.80 Glucose 236 H Calcium 8.3 L Liver Function 09/03/17 Range/Units 05:15 Total Bilirubin 0.7 (0.2-1.2) mg/dL Direct Bilirubin 0.3 (0.0-0.5) mg/dL AST 14 (5-34) Units/L ALT 16 (0-55) Units/L Alkaline Phosphatase 68 (38-126) Units/L Albumin 3.1 L (3.5-5.0) g/dL Consult Discharge Plan - Plan Referrals: Tutu Trevino MD [Primary Care Provider] -
[2017-09-03] MEDS: 0.9 % Sodium Chloride 1,000 ML IVC SCH ×2 (09:56→20:11)
--- NOTE | 2017-09-03 10:39 | Electrocardiograph Report ---
[address] [place], [place] [address] Test Date: 2017-09-01 Pat Name: John Garcia Department: 104 Room: 2N03 Gender: M Social Insurance Specialist: : [id number] Requested By: Otf Mckay Order Number: [id number] Reading MD: Fabian Calderon MD Measurements Intervals [place] Rate: 116 P: 68 NH: 128 QRS: 81 QRSD: 92 T: 44 QT: 305 QTc: 374 Interpretive Statements SINUS TACHYCARDIA LEFT ATRIAL ENLARGEMENT Electronically Signed On 09-03-2017 10:37:55 EST by Fabian Calderon MD
[2017-09-03] MEDS: Gabapentin 400 MG CAPSULE PO SCH ×3 (11:26→20:12)
[2017-09-03] MEDS ORDERED: Ibuprofen 800 MG TABLET PO PRN (22:05)
[2017-09-04] MEDS: Insulin LISPRO 300 UNITS/3 ML VIAL SQ SCH ×3 (00:18→07:38)
[2017-09-04 04:39] LABS: Basophils % 0.3 %; Eosinophils # 0.1 K/mcL (0.0-0.6); Hematocrit 39.8 % (37.5-50.1); Hemoglobin 13.5 g/dL (12.9-16.9); Immature Granulocytes % 0.3 % (0-4); Lymphocytes # 1.9 K/mcL (0.6-4.6); Lymphocytes % 31.6 %; Mean Corpuscular HGB Conc 33.9 g/dL (31.6-35.5); Mean Corpuscular Hemoglobin 29.6 pg (28.0-33.3); Mean Corpuscular Volume 87.3 fL (83.0-100.0); Mean Platelet Volume 9.5 fL (9.4-12.4); Monocytes # 0.3 K/mcL (0.0-1.3); Monocytes % 4.8 %; Neutrophils # 3.7 K/mcL (1.6-8.9); Platelet Count 136 K/mcL (140-400); Red Blood Count 4.56 M/mcL (4.19-5.50); Red Cell Distribution Width 11.9 % (11.5-14.5)
[2017-09-04 04:46] LABS: Phosphorous 2.4 mg/dL (2.3-4.7)
[2017-09-04 04:54] LABS: Alanine Aminotransferase 9 Units/L (0-55); Albumin 3.2 g/dL (3.5-5.0); Albumin/Globulin Ratio 1.7 (1.1-2.2); Alkaline Phosphatase 64 Units/L (38-126); Aspartate Amino Transferase 12 Units/L (5-34); Bilirubin,Direct 0.2 mg/dL (0.0-0.5); Bilirubin,Indirect 0.3 mg/dL (0.0-1.2); Bilirubin,Total 0.5 mg/dL (0.2-1.2); Blood Urea Nitrogen 10 mg/dL (8-26); Calcium 8.6 mg/dL (8.6-10.8); Carbon Dioxide 28 mEq/L (19-29); Chloride 108 mEq/L (98-109); Globulin 1.9 g/dL (2.4-3.5); Glucose 187 mg/dL (70-99); Osmolality,Calculated 296 (280-300); Potassium 4.1 mEq/L (3.5-4.5); Sodium 141 mEq/L (136-145); Total Protein 5.1 g/dL (6.0-8.3)
[2017-09-04 04:56] LABS: Magnesium 1.7 mg/dL (1.6-2.6)
[2017-09-04 05:13] LABS: BUN/Creatinine Ratio 12 (6-26); eGFR For African Americans > 60 (> 60); eGFR For Non-African Americans > 60 (> 60)
[2017-09-04] MEDS: 0.9 % Sodium Chloride 1,000 ML IVC SCH (06:30)
[2017-09-04] MEDS: *HR* Heparin 5,000 UNIT/ML VIAL SQ SCH (06:31)
[2017-09-04 07:43] VITALS: BP 144/94
[2017-09-04] MEDS: Gabapentin 400 MG CAPSULE PO SCH (07:46)
--- NOTE | 2017-09-04 09:58 | Discharge Summary ---
Date of Encounter: 09/04/17 Time of Encounter: 09:55 - Discharge Diagnosis (1) DKA, type 1 Priority: Primary Status: Resolved Qualifiers: Diabetes mellitus complication detail: without coma Qualified Code(s): E10.10 - Type 1 diabetes mellitus with ketoacidosis without coma (2) Leukocytosis, unspecified Priority: Secondary Status: Resolved Qualifiers: Leukocytosis type: unspecified Qualified Code(s): D72.829 - Elevated white blood cell count, unspecified (3) Type 1 diabetes Priority: Secondary Status: Chronic Qualifiers: Diabetes mellitus complication status: with ketoacidosis Qualified Code(s) : E10.10 - Type 1 diabetes mellitus with ketoacidosis without coma (4) Sore throat Priority: Secondary Status: Resolved (5) DVT prophylaxis Priority: Secondary Status: Acute (6) Hypomagnesemia Priority: Secondary Status: Resolved - Discharge Medications Home Medications: Gabapentin [Neurontin] 1,200 mg PO TID 08/17/15 [History] Subcutaneous Insulin Pump [T:Slim] 0 units IJ AD PRN 09/02/17 [History] Insulin LISPRO [HumaLOG] 0 units SQ Q4HR vial 09/04/17 [Rx] Allergies/Adverse Reactions: 3 Allergy/AdvReac Type Severity Reaction Status Date / Time citalopram [From Celexa] Allergy See Verified 09/01/17 18:34 Comments sertraline [From Zoloft] Allergy See Verified 09/01/17 18:34 Comments codeine AdvReac Diarrhea Verified 09/01/17 18:34 [From Tylenol-Codeine #3] morphine AdvReac Nausea Verified 09/01/17 18:34 Date of admission: 09/01/17 22:13 Primary care physician: Tutu Trevino MD Consults: 09/01/17 22:14 Consult to Supervisor Multifocal [employer]ens [CONS] Routine Comment: Reason for Consult: DKA , insulin pump 09/01/17 22:45 Consult for Pharmacy Education [CONS] Routine Reason for Consult: insulin pump discussion Call Completed: Yes Consult to Endocrinology [CONS] Routine Consulting Provider: [facility] Reason for Consult: DKA Call Completed: Yes Discharging clinician: Constance Frederick Anticipated date of discharge: 09/04/17 - Patient Status Disposition: Home, Self-Care Condition: Good Functional capacity at discharge: independent ambulation Overall status at discharge: patient is back to baseline - Discharge Instructions Follow Up With: TUTU TREVINO [Other] (THIS IS LOCATED BESIDE OF LISA LEARY FROM DR. BRICENO OFFICE SENT A MESSAGE BACK FOR DR. TREVINO TO SCHEDULE A FOLLOW UP APPOINTMENT AND THEY WILL CALL THE PATIENT AT HOME.) Additional Instructions: Please follow up with your primary care physician within one week after your discharge from the hospital. Please continue your home insulin in addition to all your other medications as prescribed by your primary care physician. Please closely monitor your blood glucose at home. - Diet and Activity Activity: resume usual activities as tolerated Diet: diabetic diet Hospital course: Mr. Garcia is a 31 year old male with PMH of type I DM who was admitted for nausea, vomiting and found to have DKA. He was started on IV fluids, insulin gtt to which he responded appropriately. Due to the persistent vomiting, he had a sore throat which delayed him being able to tolerate PO intake. At this time patient reports of feeling better and BG within acceptable range. He continued to use his home insulin pump throughout the duration of the hospitalization. At this time he is hemodynamically stable and will be discharged to home with follow up with his PCP. - Time Spent with Patient Total time spent providing and/or coordinating discharge services: Less than 30 minutes - Constitutional Vitals: Temp Pulse Resp BP Pulse Ox 97.6 F 68 18 144/94 98 09/04/17 07:36 09/04/17 07:36 09/04/17 07:36 09/04/17 07:36 09/04/17 07:36 General appearance: Present: cooperative, A&O X 3, pleasant, no acute distress, answers questions appropriately - Head Head exam: Present: atraumatic, normocephalic - Eye Eye exam: Present: conjuntiva pink, sclera anicteric - Respiratory Respiratory exam: Present: CTAB. Absent: accessory muscle use, rales, rhonchi, wheezes - Cardiovascular Cardiovascular exam: Present: RRR, +S1, +S2. Absent: diastolic murmur, gallop, rubs, systolic murmur - GI/Abdominal GI/Abdominal exam: Present: normal bowel sounds, soft, no peritoneal signs. Absent: distended, tenderness - Extremities Exam Extremities exam: Present: warm, radial pulses palpable and symmetrical. Absent : calf tenderness, pedal edema - Neurological Exam Neurological exam: Present: alert, oriented X3 - Psychiatric Psychiatric exam: Present: normal affect, normal mood
== END 2017-09-04 10:48 | disposition home or self-care (01) | DRG 639 ==
LOC: 2NNU 18:32 → EMEROO 18:32 → SUATTDRO 22:13 → 2NNU 22:16
PROVIDERS: ADMIT Family Medicine; ATTEND Internal Medicine

== ENCOUNTER 2017-10-06 10:49 | Inpatient (IN) ==
[2017-10-06] MEDS ORDERED: 0.9 % Sodium Chloride 1,000 ML IVC ONE ×2 (11:06→16:52)
[2017-10-06] MEDS ORDERED: Ondansetron 4 MG/2 ML VIAL IVP ONE (11:06)
--- NOTE | 2017-10-06 11:15 | Emergency Department Note ---
Disposition Clinical Impression: Nausea vomiting and diarrhea Disposition: Admitted As Inpatient Condition: Good Time of Disposition: 14:16 General Adult HPI - General Chief complaint: ED Abdominal Pain Stated complaint: abd/chest pain Time Seen by Provider: 10/06/17 11:10 Source: patient Mode of arrival: ambulatory Limitations: no limitations Nursing Notes Reviewed: Yes Vital Signs Reviewed: Yes - History of Present Illness HPI Narrative: 31-year-old male with a history of diabetes who was admitted at outside hospital for DKA about a week ago. States he has had persistent diarrhea since that time also had some vomiting today. He's had a cough that hurts in his chest when he coughs is concerning may have pneumonia. And has generalized body aches did not have a flu shot. Pt Subjective Complaint: Cough and diarrhea Onset (ago): week(s) Location: chest, abdomen (1) Radiation: non-radiation Pain Scale: 9 Quality: burning, aching Consistency: constant Improves with: nothing Worsens with: other (Breathing and cough) Associated symptoms: Reports: cough Treatments Prior to Arrival: none - Related Data Home Medications Medication Instructions Recorded Confirmed Gabapentin [Neurontin] 1,200 mg PO TID 08/17/15 09/02/17 Subcutaneous Insulin Pump [T:Slim] 0 units IJ AD PRN 09/02/17 09/02/17 Previous Rx's Medication Instructions Recorded Insulin LISPRO [HumaLOG] 0 units SQ Q4HR vial 09/04/17 Allergies Allergy/AdvReac Type Severity Reaction Status Date / Time citalopram [From Celexa] Allergy See Verified 10/06/17 10:58 Comments sertraline [From Zoloft] Allergy See Verified 10/06/17 10:58 Comments codeine AdvReac Diarrhea Verified 10/06/17 10:58 [From Tylenol-Codeine #3] morphine AdvReac Nausea Verified 10/06/17 10:58 All systems ED: reviewed and negative except as stated. Constitutional: Denies: fever, chills, weakness, weight change Eyes: Denies: eye pain, eye discharge, vision change ENT ED: Denies: ear pain, throat pain, dental pain, hearing loss, epistaxis, congestion, dysphagia Cardiovascular: Reports: chest pain. Denies: palpitations, dyspnea on exertion , edema, syncope Respiratory: Reports: cough. Denies: dyspnea, wheezes, hemoptysis, stridor Gastrointestinal: Reports: abdominal pain, nausea, vomiting, diarrhea. Denies: constipation, hematemesis, melena, hematochezia Genitourinary: Denies: urgency, dysuria, frequency, hematuria Musculoskeletal: Denies: back pain, neck pain, arthralgia, myalgia Integumentary: Denies: rash, abrasion, lesions Neurological: Denies: headache, weakness, numbness, paresthesias, confusion, abnormal gait, vertigo Psychiatric: Denies: anxiety, depression, suicidal thoughts, homicidal thoughts , auditory hallucinations, visual hallucinations Endocrine: Denies: fatigue Hematological/Lymphatic: Denies: easy bleeding, easy bruising Allergic/Immunologic: Denies: facial swelling, urticaria Past Medical History - Past Medical History Medical history: Reports: diabetes, other Surgical history: Reports: no surgical history Psychiatric history: Reports: depression - Social History Smoking Status: Current every day smoker Smokeless Tobacco Status: No Alcohol use: Reports: none Drug use: Reports: none Physical Exam - General Limitations: no limitations General appearance: alert, in no apparent distress - Head Head exam: atraumatic, normocephalic, normal inspection - Eye Eye exam: Present: normal appearance, PERRL, EOMI - ENT ENT exam: normal exam, normal oropharynx, mucous membranes moist - Neck Neck exam: Present: normal inspection, full ROM, trachea midline - Chest Chest inspection: Present: normal inspection, symmetric chest wall rise - Respiratory Respiratory exam: Present: normal lung sounds bilaterally - Cardiovascular Cardiovascular exam: Present: regular rate, normal rhythm, normal heart sounds - Abdominal Exam Abdominal exam: Present: soft, Non-Tender. Absent: tenderness, distention, guarding, rebound, rigidity - Extremities Exam Extremities exam: Present: normal inspection, full ROM. Absent: tenderness, pedal edema - Expanded Lower Extremity Exam Neurovascular/Tendon exam: Absent: motor deficit, sensory deficit, tendon deficit Gait: observed and normal - Back Exam Back exam: Present: normal inspection, full ROM. Absent: tenderness - Neurological Exam Neurological exam: Present: alert, oriented X3 - Psychiatric Psychiatric exam: Present: normal affect, normal mood - Skin Skin exam: Present: warm, dry, intact, normal color Course - Reevaluation(s) Reevaluation #1: 31-year-old diabetic who was hospitalized last week with DKA comes in with nausea vomiting and diarrhea not able to keep anything down. Initially he did appear to be a dry IV was established. Patient still feels nausea. Patient will be admitted for further evaluation and treatment. Time: 14:14 - Consultations Consultation #1: Discussed with Dr. Kaiser, admit. Time: 14:15 Vital Signs Temperature 98.1 F 10/06/17 10:55 Pulse Rate 116 10/06/17 10:55 Respiratory Rate 22 10/06/17 10:55 Blood Pressure 126/77 10/06/17 10:55 O2 Sat by Pulse Oximetry 99 10/06/17 10:55 Temperature 98.1 F 10/06/17 10:55 Pulse Rate 87 10/06/17 14:24 Respiratory Rate 15 10/06/17 14:24 Blood Pressure 120/81 10/06/17 14:24 O2 Sat by Pulse Oximetry 98 10/06/17 14:24 Oxygen Delivery Oxygen Delivery Room Air Medical Decision Making - Lab Data Result diagrams: 10/06/17 11:24 10/06/17 11:24 Lab Results 10/06/17 10/06/17 10/06/17 Range/Units 11:24 11:24 11:24 WBC 12.3 H (4.3-11.1) K/mcL RBC 5.12 (4.19-5.50) M/mcL Hgb 14.9 (12.9-16.9) g/dL Hct 45.6 (37.5-50.1) % MCV 89.1 (83.0-100.0) fL MCH 29.1 (28.0-33.3) pg MCHC 32.7 (31.6-35.5) g/dL RDW 12.2 (11.5-14.5) % Plt Count 182 (140-400) K/mcL MPV 10.0 (9.4-12.4) fL Immature Gran % 0.4 (0-4) % Seg Neutrophils % 80.7 % Lymphocytes % 10.2 % Monocytes % 7.9 % Eosinophils % 0.5 % Basophils % 0.3 % Neutrophils # 9.9 H (1.6-8.9) K/mcL Lymphocytes # 1.3 (0.6-4.6) K/mcL Monocytes # 1.0 (0.0-1.3) K/mcL Eosinophils # 0.1 (0.0-0.6) K/mcL Basophils # 0.0 (0.0-0.2) K/mcL Sodium 137 (136-145) mEq/L Potassium 4.2 (3.5-5.1) mEq/L Chloride 102 (98-107) mEq/L Carbon Dioxide 29 (23-29) mEq/L BUN 11 (6-20) mg/dL Creatinine 1.01 (0.70-1.30) mg/dL Est GFR ( Amer) > 60 (> 60) Est GFR (Non-Af Amer) > 60 (> 60) BUN/Creatinine Ratio 11 (6-26) Glucose 305 H (70-105) mg/dL Calculated Osmolality 295 (280-300) Lactic Acid 1.0 (0.5-2.2) mmol/L Calcium 9.0 (8.6-10.3) mg/dL Total Bilirubin 0.4 (0.3-1.0) mg/dL Direct Bilirubin 0.0 (0.0-0.2) mg/dL Indirect Bilirubin 0.4 (0.0-1.2) mg/dL AST 6 L (13-39) Units/L ALT 9 (7-52) Units/L Alkaline Phosphatase 68 (34-104) Units/L Serum Total Protein 6.4 (6.4-8.9) g/dL Albumin 3.9 (3.5-5.7) g/dL Globulin 2.5 (2.4-3.5) g/dL Albumin/Globulin Ratio 1.6 (1.1-2.2) Amylase 25 L (29-103) Units/L Lipase 7 L (11-82) Units/L Beta-Hydroxybutyric Acd (0.02-0.27) mmol/L Urine Color (Yellow) Urine Clarity (Clear) Urine pH (5.0-8.0) pH Units Ur Specific [place] (1.010-1.025) Urine Protein (Neg-Trace) mg/dL Urine Glucose (UA) (Normal) mg/dL Urine Ketones (Negative) mg/dL Urine Blood (Negative) Urine Nitrite (Negative) Urine Bilirubin (Negative) Urine Urobilinogen (Normal) mg/dL Ur Leukocyte Esterase (Negative) Urine Microscopic RBC (0-3) per hpf Urine Microscopic WBC (0-3) per hpf Ur Squamous Epith Cells (None-Few) per lpf Urine Bacteria (None-Few) per hpf Hyaline Casts (None-Few) per lpf Ur Culture Indicated? (NO) 10/06/17 10/06/17 Range/Units 11:24 11:29 WBC (4.3-11.1) K/mcL RBC (4.19-5.50) M/mcL Hgb (12.9-16.9) g/dL Hct (37.5-50.1) % MCV (83.0-100.0) fL MCH (28.0-33.3) pg MCHC (31.6-35.5) g/dL RDW (11.5-14.5) % Plt Count (140-400) K/mcL MPV (9.4-12.4) fL Immature Gran % (0-4) % Seg Neutrophils % % Lymphocytes % % Monocytes % % Eosinophils % % Basophils % % Neutrophils # (1.6-8.9) K/mcL Lymphocytes # (0.6-4.6) K/mcL Monocytes # (0.0-1.3) K/mcL Eosinophils # (0.0-0.6) K/mcL Basophils # (0.0-0.2) K/mcL Sodium (136-145) mEq/L Potassium (3.5-5.1) mEq/L Chloride (98-107) mEq/L Carbon Dioxide (23-29) mEq/L BUN (6-20) mg/dL Creatinine (0.70-1.30) mg/dL Est GFR ( Amer) (> 60) Est GFR (Non-Af Amer) (> 60) BUN/Creatinine Ratio (6-26) Glucose (70-105) mg/dL Calculated Osmolality (280-300) Lactic Acid (0.5-2.2) mmol/L Calcium (8.6-10.3) mg/dL Total Bilirubin (0.3-1.0) mg/dL Direct Bilirubin (0.0-0.2) mg/dL Indirect Bilirubin (0.0-1.2) mg/dL AST (13-39) Units/L ALT (7-52) Units/L Alkaline Phosphatase (34-104) Units/L Serum Total Protein (6.4-8.9) g/dL Albumin (3.5-5.7) g/dL Globulin (2.4-3.5) g/dL Albumin/Globulin Ratio (1.1-2.2) Amylase (29-103) Units/L Lipase (11-82) Units/L Beta-Hydroxybutyric Acd 0.66 H (0.02-0.27) mmol/L Urine Color Yellow (Yellow) Urine Clarity Clear (Clear) Urine pH 6.0 (5.0-8.0) pH Units Ur Specific [place] > 1.030 H (1.010-1.025) Urine Protein Trace (Neg-Trace) mg/dL Urine Glucose (UA) >=1000 H (Normal) mg/dL Urine Ketones 15 H (Negative) mg/dL Urine Blood Negative (Negative) Urine Nitrite Negative (Negative) Urine Bilirubin Negative (Negative) Urine Urobilinogen Normal (Normal) mg/dL Ur Leukocyte Esterase Negative (Negative) Urine Microscopic RBC 3-5 H (0-3) per hpf Urine Microscopic WBC 0-3 (0-3) per hpf Ur Squamous Epith Cells Few (None-Few) per lpf Urine Bacteria None Seen (None-Few) per hpf Hyaline Casts None Seen (None-Few) per lpf Ur Culture Indicated? NO (NO) - EKG Data EKG #1 EKG attestation: Yes I reviewed and interpreted this EKG. EKG shows normal: sinus rhythm Rate: normal Rhythm: NSR Interpretation: no acute changes
[2017-10-06 11:50] LABS: Alanine Aminotransferase 9 Units/L (7-52); Albumin 3.9 g/dL (3.5-5.7); Albumin/Globulin Ratio 1.6 (1.1-2.2); Alkaline Phosphatase 68 Units/L (34-104); Amylase 25 Units/L (29-103); Aspartate Amino Transferase 6 Units/L (13-39); BUN/Creatinine Ratio 11 (6-26); Bilirubin,Indirect 0.4 mg/dL (0.0-1.2); Bilirubin,Total 0.4 mg/dL (0.3-1.0); Blood Urea Nitrogen 11 mg/dL (6-20); Carbon Dioxide 29 mEq/L (23-29); Chloride 102 mEq/L (98-107); Globulin 2.5 g/dL (2.4-3.5); Glucose 305 mg/dL (70-105); Lipase 7 Units/L (11-82); Osmolality,Calculated 295 (280-300); Potassium 4.2 mEq/L (3.5-5.1); Sodium 137 mEq/L (136-145); Total Protein 6.4 g/dL (6.4-8.9); eGFR For African Americans > 60 (> 60); eGFR For Non-African Americans > 60 (> 60)
[2017-10-06 12:07] LABS: Basophils % 0.3 %; Eosinophils # 0.1 K/mcL (0.0-0.6); Eosinophils % 0.5 %; Hematocrit 45.6 % (37.5-50.1); Hemoglobin 14.9 g/dL (12.9-16.9); Immature Granulocytes % 0.4 % (0-4); Lymphocytes # 1.3 K/mcL (0.6-4.6); Lymphocytes % 10.2 %; Mean Corpuscular HGB Conc 32.7 g/dL (31.6-35.5); Mean Corpuscular Hemoglobin 29.1 pg (28.0-33.3); Mean Corpuscular Volume 89.1 fL (83.0-100.0); Monocytes % 7.9 %; Neutrophils # 9.9 K/mcL (1.6-8.9); Platelet Count 182 K/mcL (140-400); Red Blood Count 5.12 M/mcL (4.19-5.50); Red Cell Distribution Width 12.2 % (11.5-14.5); Segmented Neutrophils % 80.7 %
[2017-10-06 12:53] LABS: Bilirubin,Urine Negative (Negative); Blood,Urine Negative (Negative); Clarity,Urine Clear (Clear); Color,Urine Yellow (Yellow); Glucose,Urine (UA) >=1000 mg/dL (Normal); Ketones,Urine 15 mg/dL (Negative); Leukocyte Esterase,Urine Negative (Negative); Nitrite,Urine Negative (Negative); Protein,Urine Trace mg/dL (Neg-Trace); Specific Gravity,Urine > 1.030 (1.010-1.025); Urobilinogen,Urine Normal (Normal)
[2017-10-06 12:56] LABS: Bacteria,Urine None Seen per hpf (None-Few); Hyaline Casts,Urine None Seen per lpf (None-Few); Squamous Epithelial Cell,Urine Few per lpf (None-Few); WBC,Urine 0-3 per hpf (0-3)
[2017-10-06] MEDS ORDERED: *HR* HYDROcodone/Acet 5/325 mg TABLET PO ONE (14:13)
[2017-10-06] MEDS ORDERED: Naloxone 0.4 MG/ML INJ IVP PRN (16:29)
[2017-10-06] MEDS ORDERED: Acetaminophen 325 MG TABLET PO PRN (16:36)
[2017-10-06] MEDS ORDERED: [UNRECOGNIZED DRUG - SUPPLY] SQ PRN (16:46)
--- NOTE | 2017-10-06 16:58 | Internal Med History&Physical ---
Date of Encounter: 10/06/17 Time of Encounter: 15:30 Assessment and Plan (1) HCAP (healthcare-associated pneumonia) Current visit: Yes Status: Acute Acute HCAP. Pt. reports being hospitalized for hospital one week ago with colitis and DKA. States he began having nausea, vomiting, diarrhea, and shortness of breath for the past 3 days with left chest pain with cough and yellow sputum production. Single view chest x-ray today shows left lower lobe pneumonia. Right lung is clear. No pleural effusion or pneumothorax is present. Supplemental O2 with titration and SPO2 monitoring. DuoNeb every 6 scheduled. IVPB vancomycin with pharmacy dosing and Zosyn 3.375 gm every 8 for infection coverage. Blood cultures and sputum culture ordered. Will adjust antibiotic coverage based on culture results. Patient not currently in DKA but blood glucose is 305 on admission. Patient to continue insulin pump with dosing. Patient and follow-up labs to be monitored closely. Patient discussed with Dr. Kasier who is in agreement with plan of care. Patient is high risk for further morbidity and sepsis due to current left lower lobe pneumonia, conditions meeting sepsis criteria; recurrent nausea, vomiting, and diarrhea, and risk factors. Inpatient. (2) Sepsis Current visit: Yes Status: Acute Pt. currently meets sepsis criteria w/WBC of 12.3, HR of 116, RR of 22, and pneumonia of LLL according to CXR today. Lactic acid ordered stat. Pt. received 1L bolus 0.9 NS in ED. Will f/u w/one more 1L bolus then 125 mL/HR. Blood cultures x2. Sputum culture. Legionella and strep pneumoniae antigens ordered. Continuos cardiac telemetry. Supplemental O2 w/titration and SpO2 monitoring. DuoNebs Q6 scheduled. IVPB vancomycin w/pharmacy dosing and Zosyn 3.375 gm Q8 for infection coverage. Will adjust abx coverage based on culture results. Monitor pt. and f/u labs closely. Qualifiers: Sepsis type: sepsis due to unspecified organism Qualified Code(s): A41.9 - Sepsis, unspecified organism (3) Nausea vomiting and diarrhea Current visit: Yes Status: Acute Acute nausea, vomiting, and diarrhea for the past three days. IVP Phenergan 12.5 mg Q6 for N/V. Stool culture and fecal hemoccult ordered. Monitor I&O and daily weight. Clear liquid diet to be advanced as tolerated. (4) Tobacco abuse Current visit: Yes Status: Chronic Hx of chronic tobacco abuse. Pt. states he smokes 1.5 PPD w/no intent of quitting at present time. 21 mg nicotine patch daily. (5) Type 1 diabetes Current visit: Yes Status: Chronic Hx of chronic DM controlled w/insulin pump. Pt. to use own pump and maintain dosing while inpatient. BG checks ACHS. A1c in a.m. labs. Pt. not currently in DKA but will be monitored closely d/t current infection and sepsis criteria. Qualifiers: Diabetes mellitus complication status: with unspecified complications Qualified Code(s): E10.8 - Type 1 diabetes mellitus with unspecified complications (6) DVT prophylaxis Current visit: Yes Status: Acute Lovenox 40 mg 0600 for DVT prophylaxis. Monitor pt. for signs of bleeding. Internal Medicine - H&P: HPI Chief complaint: Abdominal pain/Chest pain w/cough Admitted From: Emergency Dept Plans for Post Hospital Care: Home History of present illness: Mr. Garcia is a 31 year old male with medical hx of diabetes on insulin pump presents from the ED w/chief complaint of SOB, abdominal pain, nausea, vomiting , cough w/yellow sputum production, diarrhea, and left-sided chest pain which worsens w/cough for the past three days. Pt. reports he was admitted to the hospital one week ago with colitis and DKA. Pt. reports body aches as well. Pt. Denies fever, chills, changes in vision, headache, weakness, fatigue, palpitations, edema, constipation, unusual bleeding, back pain, neck pain, numbness, tingling, pre-syncope, or syncope. Past Med Surg Social Fam HX - Past Medical History Source: patient, old records reviewed, obtained from family Medical history: diabetes (Controlled w/insulin pump), other Psychiatric history: depression - Past Surgical History Surgical History: no surgical history - Social History Smoking Status: Current every day smoker Packs per day: 1.5 PPD Smokeless Tobacco Status: No Alcohol use: none Drug use: none Occupational status: employed Current living situation: Home, With Family Activity Level: Independent ambulation Recent Out of Country Travel Within the Last 8 Weeks: No Exposure or Possible Exposure to Illness During Travel: No - Family History Mother Adopted: No Race: Family Member Ethnicity: Non- Living Status: Still Living Hx Family Cardiac Disorders: Yes (HTN) Father Race: Family Member Ethnicity: Non- Living Status: Still Living Hx Family Cardiac Disorders: Yes (AR, HTN) Hx Family Endocrine Disorder: Yes (Type 2 Diabetic) Sister Race: Family Member Ethnicity: Non- Living Status: Still Living Hx Family Endocrine Disorder: Yes (Grave's disease) Internal Medicine - H&P: Meds Gabapentin [Neurontin] 1,200 mg PO TID 08/17/15 [History] Subcutaneous Insulin Pump [T:Slim] 0 units IJ AD PRN 09/02/17 [History] Buprenorphine HCl/Naloxone HCl [Suboxone 8 mg-2 mg Sl Film] 1 film SL BID [History] 3 Allergy/AdvReac Type Severity Reaction Status Date / Time citalopram [From Celexa] Allergy See Verified 10/06/17 10:58 Comments sertraline [From Zoloft] Allergy See Verified 10/06/17 10:58 Comments codeine AdvReac Diarrhea Verified 10/06/17 10:58 [From Tylenol-Codeine #3] morphine AdvReac Nausea Verified 10/06/17 10:58 All Systems PM: A 10-system review of systems was performed and is negative for pertinent findings except as documented above in the HPI. - Constitutional Constitutional: no chills, no fever(s), no night sweats - EENT Eyes: no change in vision, no discharge, no pain, no photophobia Ears: no ear discharge, no ear pain, no tinnitus Nose, mouth and throat: no dysphagia, no nasal discharge, no neck pain, no sore throat - Breasts Breasts: as per HPI - Cardiovascular Cardiovascular ROS IM: as per HPI, chest pain, dyspnea, dyspnea on exertion, no diaphoresis, no lightheadedness, no palpitations, no syncope - Respiratory Respiratory: as per HPI, cough, dyspnea, dyspnea on exertion, change in phlegm color (Yellow), pain with cough, no wheezing, no excessive phlegm production - Gastrointestinal Gastrointestinal: as per HPI, diarrhea, nausea, vomiting, no abdominal pain, no hematemesis, no hematochezia, no melena - Genitourinary Genitourinary ROS male: as per HPI - Musculoskeletal Musculoskeletal ROS IM: no numbness, no tingling - Integumentary Integumentary IM: as per HPI - Neurological Neurological ROS: no confusion, no convulsions, no focal weakness, no numbness, no tingling, no tremor(s) - Psychiatric Psychiatric: as per HPI, depression - Endocrine Endocrine IM: as per HPI - Hematologic/Lymphatic Hematologic/Lymphatic: no easy bruising - Allergic/Immunologic Allergic/Immunologic: as per HPI - Constitutional Vitals: Temp Pulse Resp BP Pulse Ox 98.9 F 100 20 134/74 96 10/06/17 16:22 10/06/17 16:22 10/06/17 16:22 10/06/17 16:22 10/06/17 16:22 General appearance: Present: cooperative, mild distress, A&O X 3, pleasant, answers questions appropriately - Head Head exam: Present: atraumatic, normocephalic - Eye Eye exam: Present: PERRL, conjuntiva pink, sclera anicteric Pupils: Present: PERRL - ENT ENT exam: Present: normal exam - Neck Neck exam general surgery: Present: normal inspection, supple, trachea midline. Absent: lymphadenopathy - Respiratory Respiratory exam: Present: accessory muscle use, wheezes. Absent: rales, rhonchi - Cardiovascular Cardiovascular exam: Present: RRR, +S1, +S2. Absent: diastolic murmur, gallop, rubs, systolic murmur - GI/Abdominal GI/Abdominal exam: Present: normal bowel sounds, soft, tenderness, no peritoneal signs. Absent: distended - Rectal Rectal exam: Present: deferred - Additional comments: exam deferred. - Extremities Exam Extremities exam: Present: warm, radial pulses palpable and symmetrical. Absent : calf tenderness, cyanotic, pedal edema - Back Exam Back exam: Present: normal inspection - Neurological Exam Neurological exam: Present: CN II-XII intact, oriented X3, no focal deficits. Absent: pronater drift, facial droop, speech deficit - Psychiatric Psychiatric exam: Present: normal affect, normal mood - Skin Skin exam: Present: dry, intact Internal Med - H&P Results - Labs CBC & Chem 7: 10/06/17 11:24 10/06/17 11:24 - EKG Data EKG shows normal: sinus rhythm - EKG Data Prior EKG available for review: yes EKG comments: 10/06/17 17:11 EKG dated 09/01/17 shows sinus tachycardia and left atrial enlargement. EKG dated 10/06/17 shows sinus rhythm with possible right atrial enlargement. - Impressions ITS Impressions Chest X-Ray 10/06/17 14:41 IMPRESSION: Left lower lobe pneumonia. Radiographic follow-up recommended to assure resolution. D/ / 10/06/2017 15:36:44 Sunny Leon MD / morgan Interpreting Provider: Sunny Leon MD - Diagnostic Studies Chest x-ray Additional comments: Impressions Chest X-Ray 10/06/17 14:41
[2017-10-06] MEDS: Vancomycin 1,250 MG in D5% in Water 250 ML IVPB SCH (18:01)
[2017-10-06] MEDS: *HR* Promethazine 25 MG/ML VIAL IVP PRN (18:02)
[2017-10-06] MEDS: Nicotine 21 MG PATCH.TD24 TD SCH (18:03)
[2017-10-06] MEDS ORDERED: Benzonatate 100 MG CAPSULE PO PRN (18:24)
--- NOTE | 2017-10-06 18:32 | Event Note ---
Date of Encounter: 10/06/17 Time of Encounter: 18:31 Patient seen and examined with MANAGEMENT CONSULTANT. Agree with assessment and plan.
[2017-10-06] MEDS: Gabapentin 400 MG CAPSULE PO SCH (19:36)
[2017-10-06] MEDS: Piperacillin/Tazobactam 3.375 GM/200 ML BAG IVPB SCH (19:42)
[2017-10-06] MEDS: 0.9 % Sodium Chloride 1,000 ML IVC SCH (21:49)
[2017-10-06] MEDS ORDERED: Ibuprofen 600 MG TABLET PO PRN (22:04)
[2017-10-06] MEDS: Ipratropium/Albuterol Neb 3 ML IH SCH (22:10)
[2017-10-07] MEDS: Piperacillin/Tazobactam 3.375 GM/200 ML BAG IVPB SCH ×4 (01:23→23:10)
[2017-10-07] MEDS: Ipratropium/Albuterol Neb 3 ML IH SCH ×4 (03:36→22:13)
[2017-10-07] MEDS: Vancomycin 1,250 MG in D5% in Water 250 ML IVPB SCH ×2 (05:28→18:32)
[2017-10-07] MEDS: *HR* Promethazine 25 MG/ML VIAL IVP PRN ×3 (05:38→21:37)
[2017-10-07] MEDS: 0.9 % Sodium Chloride 1,000 ML IVC SCH ×3 (05:41→16:19)
[2017-10-07] MEDS: *HR* Enoxaparin 40 MG/0.4 ML SYRINGE SQ SCH (05:43)
[2017-10-07 06:05] LABS: Hemoglobin A1C 8.8 %
[2017-10-07 06:06] LABS: Basophils % 0.3 %; Eosinophils # 0.1 K/mcL (0.0-0.6); Eosinophils % 0.9 %; Hematocrit 38.2 % (37.5-50.1); Immature Granulocytes % 0.5 % (0-4); Lymphocytes # 1.7 K/mcL (0.6-4.6); Lymphocytes % 15.9 %; Mean Corpuscular HGB Conc 33.2 g/dL (31.6-35.5); Mean Corpuscular Hemoglobin 29.4 pg (28.0-33.3); Mean Corpuscular Volume 88.4 fL (83.0-100.0); Mean Platelet Volume 9.9 fL (9.4-12.4); Monocytes # 0.9 K/mcL (0.0-1.3); Monocytes % 8.2 %; Neutrophils # 7.9 K/mcL (1.6-8.9); Platelet Count 134 K/mcL (140-400); Red Blood Count 4.32 M/mcL (4.19-5.50); Red Cell Distribution Width 12.1 % (11.5-14.5); Segmented Neutrophils % 74.2 %
[2017-10-07 06:09] LABS: Hemoglobin 12.7 g/dL (12.9-16.9)
[2017-10-07 06:14] LABS: Alanine Aminotransferase 7 Units/L (7-52); Albumin 3.1 g/dL (3.5-5.7); Albumin/Globulin Ratio 1.5 (1.1-2.2); Alkaline Phosphatase 56 Units/L (34-104); Aspartate Amino Transferase 6 Units/L (13-39); BUN/Creatinine Ratio 11 (6-26); Bilirubin,Total 0.7 mg/dL (0.3-1.0); Blood Urea Nitrogen 10 mg/dL (6-20); Calcium 7.9 mg/dL (8.6-10.3); Carbon Dioxide 25 mEq/L (23-29); Chloride 106 mEq/L (98-107); Chol/HDL Ratio 3.4 (0-4.9); Cholesterol 92 mg/dL (< 200); Globulin 2.1 g/dL (2.4-3.5); Glucose 215 mg/dL (70-105); HDL Cholesterol 27 mg/dL (40-59); LDL Cholesterol,Calculated 47 mg/dL (0-99); Magnesium 1.7 mg/dL (1.6-2.6); Osmolality,Calculated 290 (280-300); Potassium 4.1 mEq/L (3.5-5.1); Sodium 137 mEq/L (136-145); Total Protein 5.2 g/dL (6.4-8.9); Triglycerides 89 mg/dL (< 150); eGFR For African Americans > 60 (> 60); eGFR For Non-African Americans > 60 (> 60)
[2017-10-07] MEDS: Gabapentin 400 MG CAPSULE PO SCH ×3 (09:10→21:36)
[2017-10-07] MEDS: Nicotine 21 MG PATCH.TD24 TD SCH (09:10)
--- NOTE | 2017-10-07 14:01 | Internal Med Progress Note ---
Date of Encounter: 10/07/17 Time of Encounter: 12:55 - Assessment and plan (1) HCAP (healthcare-associated pneumonia) Current Visit: Yes Status: Acute Assessment and plan: pt reports n/v/d, SOB, productive cough, and fatige 3 days ago. Pt was recently hospitalized for colitis and DKA. Chest xray shows LLL pneumonia. Pt is requiring supplemental 02 to maintain sats. Pt admitted with leukocytosis that has resolved, no fever, or tachycardia. Does not meet sepsis criteria. Continue 02, titrate prn Continue Duonebs IV Vancomycin, pharmacy todose and Zosyn 3.375 g. Monitor labs and vitals. Pulse ox with vitals. (2) Type 1 diabetes Current Visit: Yes Status: Chronic Assessment and plan: Continue Insulin pump and home dosing while inpatient. Accuchecks achs. A1c 8.8% . Continue diabetic diet. Qualifiers: Diabetes mellitus complication status: with unspecified complications Qualified Code(s): E10.8 - Type 1 diabetes mellitus with unspecified complications (3) Tobacco abuse Current Visit: Yes Status: Chronic Assessment and plan: Smoking cessation education completed. Patient states he is not ready to stop smoking. Continue nicotine patch. (4) Nausea vomiting and diarrhea Current Visit: Yes Status: Acute Assessment and plan: Resolved. Stool culture and stool Hemoccult all GERD. Continue antiemetics and IV fluid hydration. (5) Sepsis Current Visit: Yes Status: Acute Assessment and plan: Lactic acid within normal limits. Leukocytosis has resolved, patient is afebrile, no tachycardia. Resolved. Continue to monitor for changes. Qualifiers: Sepsis type: sepsis due to unspecified organism Qualified Code(s): A41.9 - Sepsis, unspecified organism (6) DVT prophylaxis Current Visit: Yes Status: Acute Assessment and plan: Lovenox subcutaneous. Patient is ambulatory. - Time Spent With Patient less than 15 minutes - Constitutional Vitals: Temp Pulse Resp BP Pulse Ox 98.7 F 85 17 113/70 99 10/07/17 12:59 10/07/17 12:59 10/07/17 12:59 10/07/17 12:59 10/07/17 12:59 General appearance: Present: cooperative, mild distress, A&O X 3, pleasant, answers questions appropriately - Head Head exam: Present: atraumatic, normal inspection, normocephalic - Eye Eye exam: Present: normal appearance, conjuntiva pink, sclera anicteric - Neck Neck exam general surgery: Present: supple, trachea midline. Absent: lymphadenopathy, tenderness - Respiratory Respiratory exam: Present: CTAB. Absent: accessory muscle use, chest wall tenderness, rales, rhonchi, wheezes - Cardiovascular Cardiovascular exam: Present: RRR, +S1, +S2. Absent: diastolic murmur, gallop, rubs, systolic murmur - GI/Abdominal GI/Abdominal exam: Present: normal bowel sounds, soft, no peritoneal signs. Absent: distended, hepatomegaly, tenderness - Extremities Exam Extremities exam: Present: normal capillary refill, warm, radial pulses palpable and symmetrical. Absent: calf tenderness, cyanotic, pedal edema, tenderness - Neurological Exam Neurological exam: Present: alert, oriented X3, no focal deficits. Absent: facial droop, speech deficit - Skin Skin exam: Present: dry, intact, normal color, warm. Absent: rash Internal Medicine: Result - Labs CBC & Chem 7: 10/07/17 05:45 10/07/17 05:45 Labs: Short CBC 10/07/17 Range/Units 05:45 WBC 10.7 (4.3-11.1) K/mcL Hgb 12.7 L D (12.9-16.9) g/dL Hct 38.2 (37.5-50.1) % Plt Count 134 L (140-400) K/mcL Neutrophils # 7.9 (1.6-8.9) K/mcL BMP 10/07/17 05:45 Sodium 137 Potassium 4.1 Chloride 106 Carbon Dioxide 25 BUN 10 Creatinine 0.91 Glucose 215 H Calcium 7.9 L Liver Function 10/07/17 Range/Units 05:45 Total Bilirubin 0.7 (0.3-1.0) mg/dL AST 6 L (13-39) Units/L ALT 7 (7-52) Units/L Alkaline Phosphatase 56 (34-104) Units/L Albumin 3.1 L (3.5-5.7) g/dL Consult Discharge Plan - Plan Referrals: Tutu Trevino MD [Primary Care Provider] -
[2017-10-08] MEDS: 0.9 % Sodium Chloride 1,000 ML IVC SCH (02:30)
[2017-10-08] MEDS: Ipratropium/Albuterol Neb 3 ML IH SCH ×2 (04:10→11:04)
[2017-10-08 05:05] LABS: Basophils % 0.3 %; Eosinophils # 0.1 K/mcL (0.0-0.6); Eosinophils % 1.7 %; Hematocrit 37.7 % (37.5-50.1); Hemoglobin 12.5 g/dL (12.9-16.9); Immature Granulocytes % 0.4 % (0-4); Lymphocytes # 1.7 K/mcL (0.6-4.6); Lymphocytes % 23.1 %; Mean Corpuscular HGB Conc 33.2 g/dL (31.6-35.5); Mean Corpuscular Hemoglobin 29.3 pg (28.0-33.3); Mean Corpuscular Volume 88.3 fL (83.0-100.0); Monocytes # 0.5 K/mcL (0.0-1.3); Monocytes % 6.5 %; Neutrophils # 4.9 K/mcL (1.6-8.9); Platelet Count 156 K/mcL (140-400); Red Blood Count 4.27 M/mcL (4.19-5.50); Red Cell Distribution Width 12.1 % (11.5-14.5)
[2017-10-08 05:15] LABS: Alanine Aminotransferase 6 Units/L (7-52); Albumin/Globulin Ratio 1.4 (1.1-2.2); Alkaline Phosphatase 52 Units/L (34-104); Aspartate Amino Transferase 8 Units/L (13-39); BUN/Creatinine Ratio 8 (6-26); Bilirubin,Total 0.5 mg/dL (0.3-1.0); Blood Urea Nitrogen 7 mg/dL (6-20); Calcium 8.2 mg/dL (8.6-10.3); Carbon Dioxide 30 mEq/L (23-29); Chloride 108 mEq/L (98-107); Globulin 2.1 g/dL (2.4-3.5); Glucose 182 mg/dL (70-105); Osmolality,Calculated 299 (280-300); Potassium 3.6 mEq/L (3.5-5.1); Sodium 143 mEq/L (136-145); Total Protein 5.1 g/dL (6.4-8.9); eGFR For African Americans > 60 (> 60); eGFR For Non-African Americans > 60 (> 60)
[2017-10-08] MEDS: *HR* Enoxaparin 40 MG/0.4 ML SYRINGE SQ SCH (05:42)
[2017-10-08] MEDS ORDERED: Vancomycin 1,500 MG in D5% in Water 250 ML IVPB SCH (06:00)
[2017-10-08] MEDS: *HR* Promethazine 25 MG/ML VIAL IVP PRN (08:06)
[2017-10-08] MEDS: Piperacillin/Tazobactam 3.375 GM/200 ML BAG IVPB SCH (08:06)
[2017-10-08] MEDS: Gabapentin 400 MG CAPSULE PO SCH (08:12)
[2017-10-08] MEDS: Nicotine 21 MG PATCH.TD24 TD SCH (08:17)
[2017-10-08 10:42] VITALS: BP 144/85
--- NOTE | 2017-10-08 11:08 | Discharge Summary ---
Date of Encounter: 10/08/17 Time of Encounter: 09:05 - Discharge Diagnosis (1) HCAP (healthcare-associated pneumonia) Priority: Primary Status: Acute Comments: pt reports n/v/d, SOB, productive cough, and fatige 3 days ago. Pt was recently hospitalized for colitis and DKA at [facility]. Chest xray shows LLL pneumonia. Pt is no longer requiring supplemental 02 to maintain sats. Pt admitted with leukocytosis that has resolved, no fever, or tachycardia. Sepsis resolved. Pt will be sent home with Augmentin 875mg po bid x 10 days (2) Type 1 diabetes Priority: Secondary Status: Chronic Comments: Pt has maintained his pump throughout visit. Accuchecks have been at his baseline. Continue pump and accucheck regimen at home. Qualifiers: Diabetes mellitus complication status: with unspecified complications Qualified Code(s): E10.8 - Type 1 diabetes mellitus with unspecified complications (3) Tobacco abuse Priority: Secondary Status: Chronic Comments: Pt used nicotine patch, smoking cessation education completed. Will be discharged with rx for patches. (4) Nausea vomiting and diarrhea Priority: Secondary Status: Resolved Comments: Resolved. Pt is able to tolerate regular diet. (5) Sepsis Priority: Secondary Status: Resolved Comments: Resolved. Qualifiers: Sepsis type: sepsis due to unspecified organism Qualified Code(s): A41.9 - Sepsis, unspecified organism (6) DVT prophylaxis Priority: Secondary Status: Acute Comments: Lovenox SQ, pt is ambulatory in the room. - Discharge Medications Prescriptions: Amoxicillin/Clavulanate [Augmentin] 875 mg PO BIDWM #20 tablet GuaiFENesin ER [Mucinex] 600 mg PO BID PRN #30 tbbp.12hr PRN Reason: Cough Nicotine Patch [Nicoderm] 14 mg TD DAILY #30 patch.td24 Home Medications: Gabapentin [Neurontin] 1,200 mg PO TID 08/17/15 [History] Subcutaneous Insulin Pump [T:Slim] 0 units IJ AD PRN 09/02/17 [History] Buprenorphine HCl/Naloxone HCl [Suboxone 8 mg-2 mg Sl Film] 1 film SL BID [History] Amoxicillin/Clavulanate [Augmentin] 875 mg PO BIDWM #20 tablet 10/08/17 [Rx] GuaiFENesin ER [Mucinex] 600 mg PO BID PRN #30 tbbp.12hr 10/08/17 [Rx] Nicotine Patch [Nicoderm] 14 mg TD DAILY #30 patch.td24 10/08/17 [Rx] Allergies/Adverse Reactions: 3 Allergy/AdvReac Type Severity Reaction Status Date / Time citalopram [From Celexa] Allergy See Verified 10/06/17 10:58 Comments sertraline [From Zoloft] Allergy See Verified 10/06/17 10:58 Comments codeine AdvReac Diarrhea Verified 10/06/17 10:58 [From Tylenol-Codeine #3] morphine AdvReac Nausea Verified 10/06/17 10:58 Date of admission: 10/06/17 16:29 Primary care physician: Tutu Trevino MD Discharging clinician: Reena Sutton Anticipated date of discharge: 10/08/17 - Patient Status Disposition: Home, Self-Care Condition: Good Functional capacity at discharge: independent ambulation Overall status at discharge: patient is progressing back to baseline - Discharge Instructions Follow Up With: Tutu Trevino MD [Primary Care Provider] - Additional Instructions: Our clerk secretary is working on getting your information from Dr Trevino's old office to his new office. You will need to follow up with Dr. Trevino in the next 7-10 days for a recheck. Your prescriptions have been called in to your pharmacy. Return to the ER if your symptoms return or worsen, or for any other problems or concerns. Resume your normal home medications Resume your normal diet and activities as tolerated. - Diet and Activity Activity: increase activity as tolerated Diet: diabetic diet Hospital course: Mr. Garcia is a 31 year old male with PMH of Type I DM, smoking, DKA, Ileus. He was recently hospitalized for DKA, admitted here for pneumonia here this admission. Pt met sepsis criteria on arrival, he was treated with IV antibiotics and IVF, symptoms have resolved. He is feeling much better and is not requiring 02. Pt will be discharged with rx for Augmentin, Mucinex, and nicotine patches. He has maintained his insulin pump and his blood glucose is at his baseline. Primary RN is attempting to have pt's records transferred to his new office so pt can follow up. Labs and vitals are stable. Pt is ready for discharge. Time spent discussing smoking cessation with patient: 3 to 10 minutes - Time Spent with Patient Total time spent providing and/or coordinating discharge services: Less than 30 minutes - Constitutional Vitals: Temp Pulse Resp BP Pulse Ox 99.0 F 73 18 144/85 95 10/08/17 10:41 10/08/17 10:41 10/08/17 10:41 10/08/17 10:41 10/08/17 10:41 General appearance: Present: cooperative, mild distress, A&O X 3, pleasant, no acute distress, answers questions appropriately - Head Head exam: Present: atraumatic, normal inspection, normocephalic - Eye Eye exam: Present: normal appearance, conjuntiva pink, sclera anicteric - Neck Neck exam general surgery: Present: normal inspection, supple, trachea midline. Absent: lymphadenopathy, tenderness - Respiratory Respiratory exam: Present: CTAB. Absent: accessory muscle use, chest wall tenderness, decreased breath sounds, rales, respiratory distress, rhonchi, wheezes - Cardiovascular Cardiovascular exam: Present: RRR, +S1, +S2. Absent: diastolic murmur, gallop, rubs, systolic murmur - GI/Abdominal GI/Abdominal exam: Present: normal bowel sounds, soft. Absent: distended, hepatomegaly, tenderness - Extremities Exam Extremities exam: Present: normal capillary refill, normal inspection, warm, radial pulses palpable and symmetrical. Absent: calf tenderness, cyanotic, pedal edema, tenderness - Neurological Exam Neurological exam: Present: alert, oriented X3, no focal deficits. Absent: facial droop, speech deficit - Skin Skin exam: Present: dry, intact, normal color, warm. Absent: rash
[2017-10-08] MEDS ORDERED: Aminoglycoside Consult 1 EACH MC ONE (12:40)
--- NOTE | 2017-10-09 07:12 | Electrocardiograph Report ---
[address] [address] Test Date: 2017-10-06 Pat Name: John Garcia Department: 103 Room: 3B Gender: M Tub Attendant: KELLEN : 1985 Requested By: Edgar Benton Order Number: [id number] Reading MD: Fabian Calderon MD Measurements Intervals [place] Rate: 88 P: 79 GA: 146 QRS: 85 QRSD: 89 T: 40 QT: 322 QTc: 368 Interpretive Statements SINUS RHYTHM RIGHT ATRIAL ENLARGEMENT Electronically Signed On 10-09-2017 7:10:29 EST by Fabian Calderon MD
== END 2017-10-08 12:41 | disposition home or self-care (01) | DRG 871 ==
LOC: EMEROO 10:49 → 3BNU 10:49
PROVIDERS: ADMIT Hospitalist; ATTEND Registered Nurse

== ENCOUNTER 2018-02-01 20:33 | Observation (INO) ==
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
[2018-02-01 22:05] LABS: Basophils % 0.3 %; Eosinophils # 0.1 K/mcL (0.0-0.6); Eosinophils % 1.3 %; Hematocrit 40.5 % (37.5-50.1); Hemoglobin 14.3 g/dL (12.9-16.9); Immature Granulocytes % 0.3 % (0-4); Lymphocytes # 2.4 K/mcL (0.6-4.6); Lymphocytes % 24.7 %; Mean Corpuscular HGB Conc 35.3 g/dL (31.6-35.5); Mean Corpuscular Hemoglobin 30.6 pg (28.0-33.3); Mean Corpuscular Volume 86.7 fL (83.0-100.0); Mean Platelet Volume 9.6 fL (9.4-12.4); Monocytes # 0.5 K/mcL (0.0-1.3); Monocytes % 5.4 %; Neutrophils # 6.6 K/mcL (1.6-8.9); Platelet Count 175 K/mcL (140-400); Red Blood Count 4.67 M/mcL (4.19-5.50); Red Cell Distribution Width 12.9 % (11.5-14.5)
[2018-02-01 22:23] LABS: BUN/Creatinine Ratio 12 (6-26); Blood Urea Nitrogen 12 mg/dL (6-20); Calcium 9.2 mg/dL (8.6-10.3); Carbon Dioxide 31 mEq/L (23-29); Chloride 102 mEq/L (98-107); Glucose 195 mg/dL (70-105); Osmolality,Calculated 291 (280-300); Potassium 4.2 mEq/L (3.5-5.1); Sodium 138 mEq/L (136-145); eGFR For African Americans > 60 (> 60); eGFR For Non-African Americans > 60 (> 60)
[2018-02-02] MEDS ORDERED: *HR* FentaNYL (PF) 100 MCG/2 ML VIAL IVP ONE (02:23)
--- NOTE | 2018-02-02 02:37 | Emergency Department Note ---
Disposition Clinical Impression: Cellulitis of hand Disposition: Admitted As Inpatient Condition: Good Instructions: Cellulitis (ED) Referrals: Tutu Trevino MD [Primary Care Provider] - Wound/Laceration HPI - General Chief Complaint: ED Wound/Laceration Stated Complaint: "Right Pinky Finger Swollen/Infected" Time Seen by Provider: 02/01/18 22:37 Source: patient Limitations: no limitations Nursing Notes Reviewed: Yes Vital Signs Reviewed: Yes - History of Present Illness Place: outdoors Associated symptoms: Reports: pain - Related Data Home Medications Medication Instructions Recorded Confirmed Gabapentin [Neurontin] 1,200 mg PO TID 08/17/15 02/01/18 Buprenorphine HCl/Naloxone HCl 1 film SL BID 10/06/17 02/01/18 [Suboxone 8 mg-2 mg Sl Film] Insulin ASPART [NovoLOG] 0 unit SQ TID PRN 02/01/18 02/01/18 Insulin Glargine,Hum.rec.anlog 130 units SQ QPM 02/01/18 02/01/18 [Tomatthew Flanagan] Allergies Allergy/AdvReac Type Severity Reaction Status Date / Time citalopram [From Celexa] Allergy See Verified 01/26/18 23:12 Comments sertraline [From Zoloft] Allergy See Verified 01/26/18 23:12 Comments codeine AdvReac Diarrhea Verified 01/26/18 23:12 [From Tylenol-Codeine #3] morphine AdvReac Nausea Verified 01/26/18 23:12 Constitutional: Denies: fever, chills, weakness, weight change Eyes: Denies: eye pain, eye discharge, vision change ENT ED: Denies: ear pain, throat pain, dental pain, hearing loss, epistaxis, congestion, dysphagia Cardiovascular: Denies: chest pain, palpitations, dyspnea on exertion, edema, syncope Respiratory: Denies: cough, dyspnea, wheezes, hemoptysis, stridor Gastrointestinal: Denies: abdominal pain, nausea, vomiting, diarrhea, constipation, hematemesis, melena, hematochezia Genitourinary: Denies: urgency, dysuria, frequency, hematuria Musculoskeletal: Reports: arthralgia. Denies: back pain, neck pain, myalgia Integumentary: Denies: rash, abrasion, lesions Neurological: Denies: headache, weakness, numbness, paresthesias, confusion, abnormal gait, vertigo Psychiatric: Denies: anxiety, depression, suicidal thoughts, homicidal thoughts , auditory hallucinations, visual hallucinations Endocrine: Denies: fatigue Hematological/Lymphatic: Denies: easy bleeding, easy bruising Allergic/Immunologic: Denies: facial swelling, urticaria Past Medical History - Past Medical History Medical history: Reports: diabetes, other Surgical history: Reports: no surgical history Psychiatric history: Reports: depression - Social History Smoking Status: Current every day smoker Smokeless Tobacco Status: No Alcohol use: Reports: none Drug use: Reports: none Physical Exam - General Limitations: no limitations General appearance: alert, in no apparent distress Course Vital Signs Temperature 98.0 F 02/01/18 20:37 Pulse Rate 112 02/01/18 20:37 Respiratory Rate 20 02/01/18 20:37 Blood Pressure 138/82 02/01/18 20:37 O2 Sat by Pulse Oximetry 98 02/01/18 20:37 Temperature 98.0 F 02/01/18 20:37 Pulse Rate 82 02/02/18 02:03 Respiratory Rate 20 02/02/18 02:03 Blood Pressure 122/72 02/02/18 02:03 O2 Sat by Pulse Oximetry 97 02/02/18 02:03 Oxygen Delivery Oxygen Delivery Room Air Wound/Laceration - Lab Data Result diagrams: 02/01/18 21:54 02/01/18 21:54 Lab Results 02/01/18 02/01/18 02/01/18 Range/Units 21:54 21:54 21:54 WBC 9.7 (4.3-11.1) K/mcL RBC 4.67 (4.19-5.50) M/mcL Hgb 14.3 (12.9-16.9) g/dL Hct 40.5 (37.5-50.1) % MCV 86.7 (83.0-100.0) fL MCH 30.6 (28.0-33.3) pg MCHC 35.3 (31.6-35.5) g/dL RDW 12.9 (11.5-14.5) % Plt Count 175 (140-400) K/mcL MPV 9.6 (9.4-12.4) fL Immature Gran % 0.3 (0-4) % Seg Neutrophils % 68.0 % Lymphocytes % 24.7 % Monocytes % 5.4 % Eosinophils % 1.3 % Basophils % 0.3 % Neutrophils # 6.6 (1.6-8.9) K/mcL Lymphocytes # 2.4 (0.6-4.6) K/mcL Monocytes # 0.5 (0.0-1.3) K/mcL Eosinophils # 0.1 (0.0-0.6) K/mcL Basophils # 0.0 (0.0-0.2) K/mcL ESR 4 (0-10) mm/hr Sodium 138 (136-145) mEq/L Potassium 4.2 (3.5-5.1) mEq/L Chloride 102 (98-107) mEq/L Carbon Dioxide 31 H (23-29) mEq/L BUN 12 (6-20) mg/dL Creatinine 0.98 (0.70-1.30) mg/dL Est GFR ( Amer) > 60 (> 60) Est GFR (Non-Af Amer) > 60 (> 60) BUN/Creatinine Ratio 12 (6-26) Glucose 195 H (70-105) mg/dL Calculated Osmolality 291 (280-300) Calcium 9.2 (8.6-10.3) mg/dL Attestation Statement - Attestation Attestation: I, Raheem Dee, examined this patient and my medical decision-making was reviewed with the TRANSPORT AIRCREWMAN/PA/Advanced Practice Nurse/Resident Physician. I agree with the documented findings, disposition and treatment plan as described except to the extent set forth below. 32-year-old male received in sign out at [address] of the right hand. CT returned showing no soft tissue collection and no acute fracture or dislocation. This report was faxed to the emergency department. Patient already received a dose of vancomycin. Dr. Benton spoke with Dr. High who will see the patient in the hospital. Patient admitted to the hospitalist for further care and evaluation.
[2018-02-02] MEDS ORDERED: Dextrose Gel 15 GM/37.5 ML TUBE PO PRN ×2 (04:11)
[2018-02-02] MEDS ORDERED: *HR* Dextrose 50 % in Water (Syg) 50 ML SYRINGE IVP PRN (04:11)
[2018-02-02] MEDS ORDERED: D5% in Water 1,000 ML IVC PRN (04:11)
[2018-02-02] MEDS ORDERED: Naloxone 0.4 MG/ML INJ IVP PRN (04:12)
[2018-02-02] MEDS ORDERED: Acetaminophen 325 MG TABLET PO PRN (04:12)
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
[2018-02-02] MEDS: traMADol 50 MG TABLET PO PRN ×2 (07:45→16:34)
[2018-02-02] MEDS: Insulin LISPRO 300 UNITS/3 ML VIAL SQ SCH ×3 (08:35→17:51)
[2018-02-02] MEDS: Gabapentin 400 MG CAPSULE PO SCH ×3 (08:40→20:25)
[2018-02-02] MEDS ORDERED: OXYCODONE Oral CONC 10 MG/0.5 ML ORAL.SYG SL PRN (10:38)
[2018-02-02] MEDS: Ketorolac 30 MG/ML VIAL IVP PRN ×2 (11:09→19:30)
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
--- NOTE | 2018-02-02 14:27 | Event Note ---
Date of Encounter: 02/02/18 Time of Encounter: 14:25 Patient evaluated earlier today. Has open wound over right fifth digit at the PIP joint with sutures in place. There is some swelling surrounding the wound but no clear signs of abscess or drainage. Continue current antibiotics. Orthopedic consult appreciated.
[2018-02-02] MEDS ORDERED: INSULIN GLARGINE SQ SCH ×2 (18:00→21:00)
[2018-02-02] MEDS ORDERED: Insulin LISPRO 300 UNITS/3 ML VIAL SQ SCH ×3 (18:37→21:00)
[2018-02-03 03:37] LABS: Basophils % 0.5 %; Eosinophils # 0.2 K/mcL (0.0-0.6); Eosinophils % 2.3 %; Hematocrit 40.7 % (37.5-50.1); Hemoglobin 13.4 g/dL (12.9-16.9); Immature Granulocytes % 0.3 % (0-4); Lymphocytes # 2.3 K/mcL (0.6-4.6); Mean Corpuscular HGB Conc 32.9 g/dL (31.6-35.5); Mean Corpuscular Hemoglobin 29.5 pg (28.0-33.3); Mean Corpuscular Volume 89.6 fL (83.0-100.0); Monocytes # 0.5 K/mcL (0.0-1.3); Neutrophils # 4.7 K/mcL (1.6-8.9); Platelet Count 159 K/mcL (140-400); Red Blood Count 4.54 M/mcL (4.19-5.50); Red Cell Distribution Width 13.2 % (11.5-14.5); Segmented Neutrophils % 60.9 %
[2018-02-03 04:02] LABS: BUN/Creatinine Ratio 19 (6-26); Blood Urea Nitrogen 21 mg/dL (6-20); Calcium 8.9 mg/dL (8.6-10.3); Carbon Dioxide 32 mEq/L (23-29); Chloride 102 mEq/L (98-107); Glucose 94 mg/dL (70-105); Magnesium 2.3 mg/dL (1.6-2.6); Osmolality,Calculated 291 (280-300); Potassium 4.4 mEq/L (3.5-5.1); Sodium 139 mEq/L (136-145); eGFR For African Americans > 60 (> 60); eGFR For Non-African Americans > 60 (> 60)
[2018-02-03] MEDS: Ketorolac 30 MG/ML VIAL IVP PRN ×2 (08:16→15:40)
[2018-02-03] MEDS: Gabapentin 400 MG CAPSULE PO SCH ×2 (08:17→15:38)
[2018-02-03] MEDS ORDERED: Insulin LISPRO 300 UNITS/3 ML VIAL SQ SCH ×2 (08:22→08:23)
[2018-02-03] MEDS ORDERED: Neosporin OINT 15 GM TUBE TP SCH (11:00)
[2018-02-03 12:17] VITALS: BP 122/61
--- NOTE | 2018-02-03 14:57 | Internal Med Progress Note ---
Date of Encounter: 02/03/18 Time of Encounter: 14:55 - Assessment and plan (1) Cellulitis of hand Current Visit: Yes Status: Acute Assessment and plan: Patient with swelling and erythema involving the left fifth finger at the PIP joint. Open wound with sutures in place. Draining serosanguineous liquid. He was evaluated by orthopedics. Recommended continued intravenous antibiotics for 24-48 hours. Will order topical Neosporin for local wound care. Patient concerned that he may be developing abscesses underneath. Will discuss with orthopedics. (2) Type 1 diabetes Current Visit: Yes Status: Chronic Assessment and plan: Blood sugars are better today. No new hypoglycemic episodes. We will decrease sliding scale coverage to medium dose correctional. Qualifiers: Diabetes mellitus complication status: with hyperglycemia Qualified Code(s) : E10.65 - Type 1 diabetes mellitus with hyperglycemia (3) DVT prophylaxis Current Visit: Yes Status: Acute Assessment and plan: On subcutaneous heparin (4) Tobacco abuse Current Visit: Yes Status: Acute - Time Spent With Patient Total time spent is greater than 50% in coordination of care (as documented) at patient's floor/unit and/or counseling patient: - Subjective Interval history: Patient seen earlier today. He noticed that he has had some serosanguineous discharge from his open wound. Pain remains significant. No fever or chills reported overnight. He is able to bend his fifth finger better at the PIP. - Constitutional Vitals: Temp Pulse Resp BP Pulse Ox 98.2 F 80 16 122/61 96 02/03/18 11:52 02/03/18 11:52 02/03/18 11:52 02/03/18 11:52 02/03/18 11:52 General appearance: Present: cooperative, A&O X 3, no acute distress, answers questions appropriately - Neck Neck exam general surgery: Present: supple, trachea midline. Absent: lymphadenopathy - Respiratory Respiratory exam: Present: CTAB. Absent: accessory muscle use, rales, rhonchi, wheezes - Cardiovascular Cardiovascular exam: Present: RRR, +S1, +S2. Absent: diastolic murmur, gallop, rubs, systolic murmur - Extremities Exam Extremities exam: Present: warm, radial pulses palpable and symmetrical. Absent : calf tenderness, cyanotic, pedal edema Additional comments: Erythema and swelling involving the left fifth finger along with open wound. Serosanguineous discharge noted. Tender to palpation. - Neurological Exam Neurological exam: Present: alert, CN II-XII intact, oriented X3, no focal deficits. Absent: facial droop, speech deficit - Skin Skin exam: Present: dry, erythema (as described above), intact Internal Medicine: Result - Labs CBC & Chem 7: 02/03/18 02:37 02/03/18 02:37 Labs: Short CBC 02/03/18 Range/Units 02:37 WBC 7.7 (4.3-11.1) K/mcL Hgb 13.4 (12.9-16.9) g/dL Hct 40.7 (37.5-50.1) % Plt Count 159 (140-400) K/mcL Neutrophils # 4.7 (1.6-8.9) K/mcL BMP 02/03/18 02:37 Sodium 139 Potassium 4.4 Chloride 102 Carbon Dioxide 32 H BUN 21 H Creatinine 1.13 Glucose 94 Calcium 8.9 Consult Discharge Plan - Plan Instructions: Cellulitis (ED) Referrals: Tutu Trevino MD [Primary Care Provider] -
--- NOTE | 2018-02-03 15:30 | Orthopedics Progress Note ---
Date of Encounter: 02/03/18 Time of Encounter: 15:27 Subjective Principal diagnosis: Left small finger infection Interval history: 02/03/2018. Patient is doing fairly well. He states that he did have some purulent drainage when he was squeezing the finger. This is from the motion is improving. Physical examination reveals the finger to be improved with marked improvement in range of motion. I do not appreciate any fluctuant areas. Wound is healing without any obvious drainage. Follow-up with me as needed. Recommendation: I discussed with the patient I think and he can be easily discharged to home with oral medications and local wound care utilizing Neosporin and a Band-Aid. I would like him to use the topical ointment to keep the eschar soft. He can follow up with his family physician this week for suture removal. I encouraged him to work aggressively on maintaining and recovering his range of motion. Objective Vital signs: Vital Signs Temp Pulse Resp BP Pulse Ox 02/03/18 11:52 98.2 F 80 16 122/61 96 02/03/18 06:59 98.2 F 74 14 126/73 96 02/02/18 23:40 98.2 F 97 15 130/72 96 02/02/18 20:01 98.4 F 100 15 152/84 94 Intake and Output 02/02/18 02/03/18 02/03/18 23:59 07:59 15:59 Intake Total 2160 / 2160 850 / 850 Output Total 1150 / 1150 400 / 400 Balance 1010 / 1010 -400 / -400 850 / 850 Intake: IV Fluids 250 / 250 250 / 250 Vancocin 1,250 MG In 0.9 % 250 / 250 250 / 250 Sodium Chloride 250 ML @ 166. 667 mls/hr IVPB Q12H [facility] Rx#: [id number] Oral 1910 / 1910 600 / 600 Output: Urine 1150 / 1150 400 / 400 Other: Meal Dinner Lunch Percent of Meal Consumed 100% 100% Blood Glucose* 212 226 83 - Labs CBC & BMP: 02/03/18 02:37 02/03/18 02:37 Labs: Abnormal lab results Carbon Dioxide 32 mEq/L (23-29) H 02/03/18 02:37 BUN 21 mg/dL (6-20) H 02/03/18 02:37 Phosphorus 5.0 mg/dL (2.7-4.5) H 02/03/18 02:37 Consult Discharge Plan - Plan Instructions: Cellulitis (ED) Referrals: Tutu Trevino MD [Primary Care Provider] -
--- NOTE | 2018-02-03 15:35 | Discharge Summary ---
- NOTES TO OUTPATIENT PROVIDER Notes to Outpatient Provider: Patient hospitalized here for wound laceration with acute infection involving the left fifth finger at the PIP joint. He was treated with IV antibiotics. Evaluated by orthopedics. Has been cleared for discharge today on oral antibiotics. He will follow up with PCP for suture removal. Follow up with orthopedics as needed. Date of Encounter: 02/03/18 Time of Encounter: 15:31 - Discharge Diagnosis (1) Cellulitis of hand Priority: Primary Status: Acute (2) Type 1 diabetes Priority: Secondary Status: Chronic Qualifiers: Diabetes mellitus complication status: with hyperglycemia Qualified Code(s) : E10.65 - Type 1 diabetes mellitus with hyperglycemia (3) DVT prophylaxis Priority: Secondary Status: Acute (4) Tobacco abuse Priority: Secondary Status: Chronic Hospital course: Mr. Garcia is a 32 year old male patient who presented to the ER with wound infection involving the left hand over the fifth PIP joint. He was evaluated in the ER and then hospitalized for orthopedic evaluation and IV antibiotics. He received vancomycin here. He was evaluated by orthopedics and recommended no acute surgical intervention at this time. He has slowly improved. He is able to move his joint better today. He has been cleared for discharge from orthopedic standpoint. He will be discharged home on clindamycin. He will follow up with his PCP for suture removal in 3 days. He will follow up with orthopedics as needed if his wound does not improve. Patient also has type 1 diabetes. He did develop an episode of hypoglycemia yesterday morning when he received subcutaneous insulin. Since then his blood sugars have improved and there have been closely monitored. Discharge discussed with: patient, nurse, mobile sales consultant - Time Spent with Patient Total time spent providing and/or coordinating discharge services: Greater than 30 minutes (32 min) - Discharge Medications Prescriptions: Ibuprofen [Motrin] 800 mg PO Q8HR PRN #30 tablet PRN Reason: Moderate Pain Clindamycin [Cleocin] 450 mg PO QID 10 Days capsule Lactobacillus Acidophilus [Acidophilus] 1 each PO BID #20 capsule Daniel/Poly/Sam OINT [Triple Antibiotic Ointment] 1 appl TP BID #1 tube Home Medications: Gabapentin [Neurontin] 1,200 mg PO TID 08/17/15 [History] Buprenorphine HCl/Naloxone HCl [Suboxone 8 mg-2 mg Sl Film] 1 film SL BID [History] Insulin ASPART [NovoLOG] 0 unit SQ TID PRN 02/01/18 [History] Insulin Glargine,Hum.rec.anlog [Toujeo Solostar] 125 units SQ QPM 02/01/18 [ History] Clindamycin [Cleocin] 450 mg PO QID 10 Days capsule 02/03/18 [Rx] Ibuprofen [Motrin] 800 mg PO Q8HR PRN #30 tablet 02/03/18 [Rx] Lactobacillus Acidophilus [Acidophilus] 1 each PO BID #20 capsule 02/03/18 [Rx] Daniel/Poly/Sam OINT [Triple Antibiotic Ointment] 1 appl TP BID #1 tube 02/03/18 [ Rx] Allergies/Adverse Reactions: 3 Allergy/AdvReac Type Severity Reaction Status Date / Time citalopram [From Celexa] Allergy See Verified 01/26/18 23:12 Comments sertraline [From Zoloft] Allergy See Verified 01/26/18 23:12 Comments codeine AdvReac Diarrhea Verified 01/26/18 23:12 [From Tylenol-Codeine #3] morphine AdvReac Nausea Verified 01/26/18 23:12 Date of admission: 02/02/18 02:21 Primary care physician: Tutu Trevino MD Consults: 02/01/18 22:33 Consult to Orthopedic Surgery [CONS] Stat Consulting Provider: Mario High Reason for Consult: Infected finger Time Notified: 22:33 Call Completed: Yes Discharging clinician: Juan Francisco Hilliard Anticipated date of discharge: 02/03/18 - Constitutional Vitals: Temp Pulse Resp BP Pulse Ox 98.2 F 80 16 122/61 96 02/03/18 11:52 02/03/18 11:52 02/03/18 11:52 02/03/18 11:52 02/03/18 11:52 General appearance: Present: cooperative, A&O X 3, no acute distress, answers questions appropriately - Respiratory Respiratory exam: Present: CTAB. Absent: accessory muscle use, rales, rhonchi, wheezes - Cardiovascular Cardiovascular exam: Present: RRR, +S1, +S2. Absent: diastolic murmur, gallop, rubs, systolic murmur - GI/Abdominal GI/Abdominal exam: Present: normal bowel sounds, soft, no peritoneal signs. Absent: distended, tenderness - Extremities Exam Extremities exam: Present: warm, radial pulses palpable and symmetrical. Absent : calf tenderness, cyanotic, pedal edema Additional comments: Open wound with Erythema and swelling involving the left fifth PIP joint region. Sutures in place. Draining serosanguineous discharge. - Neurological Exam Neurological exam: Present: CN II-XII intact, oriented X3, no focal deficits. Absent: facial droop, speech deficit - Patient Status Disposition: Home, Self-Care Condition: Good Functional capacity at discharge: independent ambulation Overall status at discharge: patient is progressing back to baseline - Discharge Instructions Instructions: Cellulitis (ED), Cellulitis (DC), Diabetes Mellitus Type 2 in Adults (DC) Follow Up With: Tutu Trevino MD [Primary Care Provider] - (Within one week) Forms: ED Satisfaction Letter Additional Instructions: Local wound care utilizing Neosporin and a Band-Aid to keep the eschar soft. - Diet and Activity Activity: increase activity as tolerated Diet: diabetic diet
[2018-02-03] MEDS ORDERED: Aminoglycoside Consult 1 EACH MC ONE (16:01)
[2018-02-03] MEDS ORDERED: *HR* Heparin 5,000 UNIT/ML VIAL SQ SCH (18:00)
[2018-02-03] MEDS ORDERED: Neosporin OINT 1 APPL PACKET TP SCH (21:00)
== END 2018-02-03 16:02 | disposition home or self-care (01) ==
LOC: EMEROO 20:33 → 3ANU 20:33 → SUATTDRO 02-02 02:21 → 3ANU 02-02 02:39
PROVIDERS: ADMIT Internal Medicine; ATTEND Internal Medicine

== ENCOUNTER 2021-10-19 11:07 | Inpatient (IN) ==
[2021-10-19] MEDS ORDERED: 0.9 % Sodium Chloride 1,000 ML IVC ONE (11:49)
[2021-10-19] MEDS ORDERED: Ondansetron 4 MG/2 ML VIAL IVP ONE (11:49)
[2021-10-19 11:54] LABS: Basophils % 0.4 %; Eosinophils % 0.4 %; Hematocrit 41.1 % (37.5-50.1); Immature Granulocytes % 0.4 % (0-4); Lymphocytes # 1.2 K/mcL (0.6-4.6); Lymphocytes % 11.5 %; Mean Corpuscular HGB Conc 34.1 g/dL (31.6-35.5); Mean Corpuscular Hemoglobin 30.2 pg (28.0-33.3); Mean Corpuscular Volume 88.8 fL (83.0-100.0); Monocytes # 0.6 K/mcL (0.0-1.3); Monocytes % 5.7 %; Neutrophils # 8.6 K/mcL (1.6-8.9); Platelet Count 165 K/mcL (140-400); Red Blood Count 4.63 M/mcL (4.19-5.50); Red Cell Distribution Width 12.3 % (11.5-14.5); Segmented Neutrophils % 81.6 %; White Blood Count 10.5 K/mcL (4.3-11.1)
[2021-10-19 12:23] LABS: Albumin 3.9 g/dL (3.5-5.7); Albumin/Globulin Ratio 1.8 (1.1-2.2); Bilirubin,Total 0.9 mg/dL (0.3-1.0); Calcium 11.8 mg/dL (8.6-10.3); Globulin 2.2 g/dL (2.4-3.5); Potassium 4.4 mEq/L (3.5-5.1); Total Protein 6.1 g/dL (6.4-8.9)
[2021-10-19] MEDS ORDERED: Insulin Regular, Human 100 UNIT/ML IV PRN (12:25)
[2021-10-19 12:56] LABS: VBG HCO3 32 mEq/L (21-27); VBG PCO2 52 mmHg (41-51); VBG PO2 92 mmHg (25-50)
[2021-10-19] MEDS ORDERED: 0.9 % Sodium Chloride 1,000 ML IV ONE (13:18)
[2021-10-19 13:54] LABS: Bilirubin,Urine Negative (Negative); Blood,Urine Small (Negative); Clarity,Urine Clear (Clear); Color,Urine Light-Yellow (Yellow); Glucose,Urine (UA) >=1000 mg/dL (Normal); Hyaline Casts,Urine Few per lpf (None Seen); Ketones,Urine Negative (Negative); Leukocyte Esterase,Urine Negative (Negative); Mucus,Urine Few per lpf (None-Few); Nitrite,Urine Negative (Negative); Protein,Urine 70 mg/dL (Neg-Trace); Specific Gravity,Urine 1.023 (1.010-1.025); Squamous Epithelial Cell,Urine Few per hpf (None-Few); Urobilinogen,Urine Normal (Normal)
[2021-10-19 14:01] LABS: Influenza A PCR Negative (Negative); Influenza B PCR Negative (Negative); Resp. Syncytial Virus PCR Negative (Negative)
[2021-10-19 14:02] LABS: SARS-CoV-2 by PCR (In House) Negative (Negative)
[2021-10-19 14:15] LABS: Estimated Average Glucose 217 mg/dl; Hemoglobin A1C 9.2 %
[2021-10-19] MEDS ORDERED: Naloxone 0.4 MG/ML INJ IVP PRN (14:43)
[2021-10-19] MEDS ORDERED: *HR* Dextrose 50 % in Water (Syg) 50 ML SYRINGE IVP PRN (14:43)
[2021-10-19] MEDS ORDERED: D5% in 0.45% NACL w KCl 20 MEQ/1,000 ML MLS IVC PRN (14:43)
[2021-10-19] MEDS ORDERED: D5% in 0.45% NACL 1,000 ML IVC PRN (14:43)
[2021-10-19] MEDS ORDERED: 0.45 % Sodium Chloride w/KCl 20 MEQ/1,000 ML MLS IVC SCH ×2 (14:45)
[2021-10-19] MEDS ORDERED: Dextrose Gel 15 GM/37.5 ML TUBE PO PRN ×2 (15:37)
[2021-10-19] MEDS ORDERED: Insulin LISPRO 300 UNITS/3 ML VIAL SUBQ ONE (16:00)
[2021-10-19] MEDS ORDERED: Metoclopramide 10 MG/2 ML VIAL IVP ONE (17:20)
[2021-10-19] MEDS: Insulin LISPRO 300 UNITS/3 ML VIAL SUBQ SCH (17:39)
[2021-10-19] MEDS: 0.9 % Sodium Chloride 1,000 ML IVC SCH (17:40)
[2021-10-19] MEDS: Acetaminophen 325 MG TABLET PO PRN (18:06)
[2021-10-19 19:06] LABS: Magnesium 1.5 mg/dL (1.6-2.6)
[2021-10-19 19:08] LABS: Troponin I < 0.03 ng/mL (< 0.04)
[2021-10-19 19:27] LABS: Calcium 10.3 mg/dL (8.6-10.3); Potassium 3.9 mEq/L (3.5-5.1)
[2021-10-19] MEDS ORDERED: Insulin DETEMIR 100 UNIT/ML X5UNITS SUBQ SCH (21:00)
[2021-10-19] MEDS: Gabapentin 300 MG CAPSULE PO SCH (21:11)
[2021-10-20] MEDS: 0.9 % Sodium Chloride 1,000 ML IVC SCH ×3 (02:38→20:36)
[2021-10-20] MEDS: *HR* Dextrose 50 % in Water (Syg) 50 ML SYRINGE IVP PRN (03:19)
[2021-10-20] MEDS: Metoclopramide 10 MG/2 ML VIAL IVP PRN ×2 (05:46→17:28)
[2021-10-20 06:52] LABS: Basophils # 0.1 K/mcL (0.0-0.2); Basophils % 0.5 %; Eosinophils # 0.1 K/mcL (0.0-0.6); Hemoglobin 12.5 g/dL (12.9-16.9); Immature Granulocytes % 0.5 % (0-4); Lymphocytes # 2.2 K/mcL (0.6-4.6); Lymphocytes % 19.8 %; Mean Corpuscular HGB Conc 34.7 g/dL (31.6-35.5); Mean Corpuscular Hemoglobin 31.1 pg (28.0-33.3); Mean Corpuscular Volume 89.6 fL (83.0-100.0); Monocytes # 0.6 K/mcL (0.0-1.3); Monocytes % 5.7 %; Platelet Count 146 K/mcL (140-400); Red Blood Count 4.02 M/mcL (4.19-5.50); Red Cell Distribution Width 12.3 % (11.5-14.5); Segmented Neutrophils % 72.5 %; White Blood Count 11.1 K/mcL (4.3-11.1)
[2021-10-20] MEDS: Insulin LISPRO 300 UNITS/3 ML VIAL SUBQ SCH ×3 (07:09→17:17)
[2021-10-20 07:49] LABS: Calcium 9.4 mg/dL (8.6-10.3); Magnesium 1.6 mg/dL (1.6-2.6); Phosphorous 3.4 mg/dL (2.7-4.5); Potassium 4.1 mEq/L (3.5-5.1)
[2021-10-20] MEDS ORDERED: 0.9 % Sodium Chloride 1,000 ML IVC ONE (07:58)
[2021-10-20] MEDS: Gabapentin 300 MG CAPSULE PO SCH ×3 (08:27→19:44)
[2021-10-20] MEDS: Ondansetron 4 MG/2 ML VIAL IVP PRN (10:42)
[2021-10-20 12:14] LABS: Adenovirus F 40/41 PCR Not detected (Not detect); Astrovirus PCR Not detected (Not detect); C.difficile Toxin A/B Gene PCR Not detected (Not detect); Campylobacter by PCR Not detected (Not detect); Cryptosporidium by PCR Not detected (Not detect); Cyclospora cayetanensis PCR Not detected (Not detect); E. coli O157 by PCR Not detected (Not detect); Entamoeba histolytica PCR Not detected (Not detect); Enteroaggregative E.coli(EAEC) Not detected (Not detect); Enteropathogenic E.coli(EPEC) DETECTED (Not detect); Enterotoxigenic E.coli (ETEC) Not detected (Not detect); Giardia lamblia PCR Not detected (Not detect); Norovirus GI/GII PCR Not detected (Not detect); Plesiomonas shigelloides PCR Not detected (Not detect); Rotavirus A PCR Not detected (Not detect); Salmonella PCR Not detected (Not detect); Sapovirus PCR Not detected (Not detect); Shig/EnteroinvasiveE coli EIEC Not detected (Not detect); Shigalike tox-prod E coli STEC Not detected (Not detect); Vibrio PCR Not detected (Not detect); Vibrio cholerae PCR Not detected (Not detect); Yersinia enterocolitica PCR Not detected (Not detect)
[2021-10-20] MEDS ORDERED: Azithromycin 250 MG TABLET PO ONE (17:01)
[2021-10-20] MEDS: Nicotine 21 MG PATCH.TD24 TD SCH (17:17)
[2021-10-20] MEDS ORDERED: Insulin DETEMIR 100 UNIT/ML X5UNITS SUBQ ONE (19:25)
[2021-10-20] MEDS: Acetaminophen 325 MG TABLET PO PRN (20:35)
[2021-10-20] MEDS: Insulin DETEMIR 100 UNIT/ML X5UNITS SUBQ SCH (20:36)
[2021-10-20] MEDS ORDERED: Ketorolac 30 MG/ML VIAL IVP ONE (21:34)
[2021-10-21 02:11] LABS: Basophils % 0.4 %; Eosinophils # 0.1 K/mcL (0.0-0.6); Eosinophils % 1.5 %; Hematocrit 35.6 % (37.5-50.1); Hemoglobin 12.4 g/dL (12.9-16.9); Immature Granulocytes % 0.2 % (0-4); Lymphocytes # 2.3 K/mcL (0.6-4.6); Lymphocytes % 24.8 %; Mean Corpuscular HGB Conc 34.8 g/dL (31.6-35.5); Monocytes # 0.5 K/mcL (0.0-1.3); Monocytes % 5.2 %; Neutrophils # 6.4 K/mcL (1.6-8.9); Platelet Count 145 K/mcL (140-400); Red Cell Distribution Width 12.1 % (11.5-14.5); Segmented Neutrophils % 67.9 %; White Blood Count 9.4 K/mcL (4.3-11.1)
[2021-10-21 02:27] LABS: Calcium 8.6 mg/dL (8.6-10.3); Potassium 3.8 mEq/L (3.5-5.1)
[2021-10-21] MEDS: *HR* Dextrose 50 % in Water (Syg) 50 ML SYRINGE IVP PRN (03:43)
[2021-10-21] MEDS: Metoclopramide 10 MG/2 ML VIAL IVP PRN ×2 (06:21→20:26)
[2021-10-21] MEDS: 0.9 % Sodium Chloride 1,000 ML IVC SCH ×2 (06:22→15:57)
[2021-10-21] MEDS: Insulin LISPRO 300 UNITS/3 ML VIAL SUBQ SCH ×3 (07:07→16:05)
[2021-10-21] MEDS: Nicotine 21 MG PATCH.TD24 TD SCH (08:53)
[2021-10-21] MEDS: Gabapentin 300 MG CAPSULE PO SCH (08:54)
[2021-10-21] MEDS: Azithromycin 250 MG TABLET PO SCH (08:54)
[2021-10-21] MEDS: Ondansetron 4 MG/2 ML VIAL IVP PRN (11:37)
[2021-10-21] MEDS: Gabapentin 100 MG CAPSULE PO SCH ×2 (15:56→20:26)
[2021-10-21] MEDS ORDERED: Nicotine 21 MG PATCH.TD24 TD SCH (17:01)
[2021-10-21] MEDS: Acetaminophen 325 MG TABLET PO PRN (20:25)
[2021-10-21] MEDS: Insulin DETEMIR 100 UNIT/ML X5UNITS SUBQ SCH (20:27)
[2021-10-21 20:36] VITALS: O2SAT 97
[2021-10-21] MEDS ORDERED: Insulin LISPRO 300 UNITS/3 ML VIAL SUBQ SCH (22:15)
[2021-10-21] MEDS ORDERED: *HR* HYDROmorphone (PF) 1 MG/ML SYRINGE IVP ONE (23:20)
[2021-10-22] MEDS: 0.9 % Sodium Chloride 1,000 ML IVC SCH (01:10)
[2021-10-22 01:43] LABS: Sodium, Urine 64.7 mEq/L
[2021-10-22 06:21] LABS: Basophils % 0.4 %; Eosinophils # 0.2 K/mcL (0.0-0.6); Eosinophils % 2.2 %; Hematocrit 34.8 % (37.5-50.1); Hemoglobin 11.8 g/dL (12.9-16.9); Immature Granulocytes % 0.3 % (0-4); Lymphocytes # 2.4 K/mcL (0.6-4.6); Lymphocytes % 32.3 %; Mean Corpuscular HGB Conc 33.9 g/dL (31.6-35.5); Mean Corpuscular Hemoglobin 30.3 pg (28.0-33.3); Mean Corpuscular Volume 89.2 fL (83.0-100.0); Mean Platelet Volume 9.8 fL (9.4-12.4); Monocytes # 0.4 K/mcL (0.0-1.3); Monocytes % 5.6 %; Neutrophils # 4.4 K/mcL (1.6-8.9); Platelet Count 132 K/mcL (140-400); Red Cell Distribution Width 12.3 % (11.5-14.5); Segmented Neutrophils % 59.2 %; White Blood Count 7.3 K/mcL (4.3-11.1)
[2021-10-22 06:47] VITALS: BP 152/88; PULSE 71; TEMP 97.3
[2021-10-22 06:48] LABS: BUN/Creatinine Ratio 24 (6-26); Blood Urea Nitrogen 37 mg/dL (6-20); Calcium 8.5 mg/dL (8.6-10.3); Carbon Dioxide 29 mEq/L (23-29); Chloride 109 mEq/L (98-107); Creatine Kinase 32 Units/L (30-223); Glucose 127 mg/dL (70-105); Osmolality,Calculated 296 (280-300); Potassium 3.7 mEq/L (3.5-5.1); Sodium 138 mEq/L (136-145); Uric Acid 5.6 mg/dL (2.3-7.6); eGFR For African Americans > 60 (> 60); eGFR For Non-African Americans 53 (> 60)
[2021-10-22 07:04] LABS: Hepatitis B Surface Antigen Nonreactive (Nonreactive)
[2021-10-22 07:33] LABS: Hepatitis B Core IgM Nonreactive (Nonreactive)
[2021-10-22 07:34] LABS: Hepatitis C Virus Antibody Nonreactive (Nonreactive)
[2021-10-22 07:35] LABS: Hepatitis A Antibody IgM Nonreactive (Nonreactive)
[2021-10-22] MEDS: Insulin LISPRO 300 UNITS/3 ML VIAL SUBQ SCH (07:55)
[2021-10-22] MEDS: Azithromycin 250 MG TABLET PO SCH (08:01)
[2021-10-22] MEDS: Gabapentin 100 MG CAPSULE PO SCH (08:01)
[2021-10-22] MEDS: Nicotine 21 MG PATCH.TD24 TD SCH (08:01)
== END 2021-10-22 11:44 | disposition home or self-care (01) | DRG 683 ==
LOC: EMEROOARM 11:07 → 3BNU 11:07 → SUATTDRO 15:07 → 3BNU 16:45
PROVIDERS: ADMIT Family Medicine; ATTEND Internal Medicine

== ENCOUNTER 2022-01-30 11:13 | Observation (INO) ==
[2022-01-30] MEDS ORDERED: Ondansetron 4 MG/2 ML VIAL IVP ONE (11:51)
[2022-01-30] MEDS ORDERED: 0.9 % Sodium Chloride 1,000 ML IVC ONE ×2 (11:51→12:58)
[2022-01-30 12:12] LABS: Basophils % 0.2 %; Eosinophils % 0.1 %; Hematocrit 42.8 % (37.5-50.1); Hemoglobin 14.7 g/dL (12.9-16.9); Immature Granulocytes % 0.3 % (0-4); Lymphocytes # 1.5 K/mcL (0.6-4.6); Mean Corpuscular HGB Conc 34.3 g/dL (31.6-35.5); Mean Corpuscular Hemoglobin 31.5 pg (28.0-33.3); Mean Corpuscular Volume 91.8 fL (83.0-100.0); Mean Platelet Volume 9.7 fL (9.4-12.4); Monocytes # 0.3 K/mcL (0.0-1.3); Monocytes % 2.6 %; Neutrophils # 10.9 K/mcL (1.6-8.9); Platelet Count 241 K/mcL (140-400); Red Blood Count 4.66 M/mcL (4.19-5.50); Red Cell Distribution Width 11.9 % (11.5-14.5); Segmented Neutrophils % 84.8 %; White Blood Count 12.9 K/mcL (4.3-11.1)
[2022-01-30 12:28] LABS: Alanine Aminotransferase 49 Units/L (7-52); Albumin 4.3 g/dL (3.5-5.7); Albumin/Globulin Ratio 1.7 (1.1-2.2); Alkaline Phosphatase 108 Units/L (34-104); Aspartate Amino Transferase 22 Units/L (13-39); BUN/Creatinine Ratio 23 (6-26); Bilirubin,Total 0.7 mg/dL (0.3-1.0); Blood Urea Nitrogen 34 mg/dL (6-20); Calcium 9.7 mg/dL (8.6-10.3); Carbon Dioxide 30 mEq/L (23-29); Chloride 91 mEq/L (98-107); Globulin 2.5 g/dL (2.4-3.5); Glucose 510 mg/dL (70-105); Lipase 5 Units/L (11-82); Osmolality,Calculated 314 (280-300); Potassium 3.9 mEq/L (3.5-5.1); Sodium 137 mEq/L (136-145); Total Protein 6.8 g/dL (6.4-8.9); eGFR For African Americans > 60 (> 60); eGFR For Non-African Americans 54 (> 60)
[2022-01-30 12:49] LABS: Bilirubin,Urine Negative (Negative); Blood,Urine Trace (Negative); Clarity,Urine Clear (Clear); Color,Urine Light-Yellow (Yellow); Glucose,Urine (UA) >=1000 mg/dL (Normal); Ketones,Urine 60 mg/dL (Negative); Leukocyte Esterase,Urine Negative (Negative); Mucus,Urine Few per lpf (None-Few); Nitrite,Urine Negative (Negative); PH,Urine 5.5 pH Units (5.0-8.0); Protein,Urine Trace mg/dL (Neg-Trace); RBC,Urine 0-3 per hpf (0-3); Specific Gravity,Urine > 1.030 (1.010-1.025); Sperm,Urine Present per hpf (None Seen); Urobilinogen,Urine Normal (Normal); WBC,Urine 0-3 per hpf (0-3)
[2022-01-30 13:15] LABS: VBG HCO3 30 mEq/L (21-27); VBG PCO2 44 mmHg (41-51); VBG PH 7.45 pH Units (7.32-7.42); VBG PO2 60 mmHg (25-50)
[2022-01-30] MEDS ORDERED: Gabapentin 400 MG CAPSULE PO ONE (14:30)
[2022-01-30] MEDS ORDERED: Naloxone 0.4 MG/ML INJ IVP PRN (16:38)
[2022-01-30] MEDS ORDERED: Melatonin 3 MG TABLET PO PRN (16:38)
[2022-01-30] MEDS ORDERED: Ondansetron 4 MG/2 ML VIAL IVP PRN (16:38)
[2022-01-30] MEDS ORDERED: D5% in Water 1,000 ML IVC PRN ×2 (16:40→20:02)
[2022-01-30] MEDS ORDERED: Dextrose 4 GM Chewable Tablets PO PRN ×4 (16:40→20:02)
[2022-01-30] MEDS ORDERED: *HR* Dextrose 50 % in Water (Syg) 50 ML SYRINGE IVP PRN ×2 (16:40→20:02)
[2022-01-30] MEDS ORDERED: Metoclopramide 10 MG/2 ML VIAL IVP PRN (16:44)
[2022-01-30] MEDS: Pantoprazole 40 MG VIAL IVP SCH (17:37)
[2022-01-30] MEDS: *HR* Heparin 5,000 UNIT/ML VIAL SQ SCH (17:37)
[2022-01-30] MEDS: 0.45 % Sodium Chloride w/KCl 20 MEQ/1,000 ML MLS IVC SCH (17:38)
[2022-01-30] MEDS: Insulin LISPRO 300 UNITS/3 ML VIAL SUBQ SCH (17:46)
[2022-01-30] MEDS ORDERED: Insulin DETEMIR 100 UNIT/ML X5UNITS SUBQ ONE (18:00)
[2022-01-30 18:30] LABS: Estimated Average Glucose 252 mg/dl; Hemoglobin A1C 10.4 %
[2022-01-30 19:30] LABS: BUN/Creatinine Ratio 23 (6-26); Blood Urea Nitrogen 26 mg/dL (6-20); Calcium 8.4 mg/dL (8.6-10.3); Carbon Dioxide 31 mEq/L (23-29); Chloride 97 mEq/L (98-107); Glucose 376 mg/dL (70-105); Osmolality,Calculated 306 (280-300); Potassium 4.1 mEq/L (3.5-5.1); Sodium 138 mEq/L (136-145); eGFR For African Americans > 60 (> 60); eGFR For Non-African Americans > 60 (> 60)
[2022-01-30] MEDS ORDERED: Insulin LISPRO 300 UNITS/3 ML VIAL SUBQ SCH (21:00)
[2022-01-31] MEDS: 0.45 % Sodium Chloride w/KCl 20 MEQ/1,000 ML MLS IVC SCH (01:11)
[2022-01-31] MEDS: Gabapentin 400 MG CAPSULE PO SCH ×2 (03:15→08:37)
[2022-01-31 05:05] LABS: Basophils % 0.4 %; Eosinophils # 0.1 K/mcL (0.0-0.6); Eosinophils % 1.3 %; Hematocrit 33.2 % (37.5-50.1); Immature Granulocytes % 0.3 % (0-4); Lymphocytes % 30.5 %; Mean Corpuscular Hemoglobin 30.9 pg (28.0-33.3); Mean Corpuscular Volume 90.7 fL (83.0-100.0); Mean Platelet Volume 9.7 fL (9.4-12.4); Monocytes # 0.4 K/mcL (0.0-1.3); Monocytes % 4.2 %; Neutrophils # 6.2 K/mcL (1.6-8.9); Platelet Count 179 K/mcL (140-400); Red Blood Count 3.66 M/mcL (4.19-5.50); Segmented Neutrophils % 63.3 %; White Blood Count 9.8 K/mcL (4.3-11.1)
[2022-01-31 05:06] LABS: Hemoglobin 11.3 g/dL (12.9-16.9)
[2022-01-31 05:21] LABS: BUN/Creatinine Ratio 17 (6-26); Blood Urea Nitrogen 18 mg/dL (6-20); Calcium 8.2 mg/dL (8.6-10.3); Carbon Dioxide 33 mEq/L (23-29); Chloride 103 mEq/L (98-107); Glucose 77 mg/dL (70-105); Osmolality,Calculated 289 (280-300); Potassium 3.7 mEq/L (3.5-5.1); Sodium 139 mEq/L (136-145); eGFR For African Americans > 60 (> 60); eGFR For Non-African Americans > 60 (> 60)
[2022-01-31] MEDS: *HR* Heparin 5,000 UNIT/ML VIAL SQ SCH (05:39)
[2022-01-31] MEDS: Pantoprazole 40 MG VIAL IVP SCH (05:43)
[2022-01-31 06:58] VITALS: O2SAT 97
[2022-01-31] MEDS ORDERED: Insulin LISPRO 300 UNITS/3 ML VIAL SUBQ SCH (07:30)
[2022-01-31] MEDS: Insulin LISPRO 300 UNITS/3 ML VIAL SUBQ SCH ×2 (07:42→11:29)
[2022-01-31] MEDS ORDERED: lisinopriL 20 MG TABLET PO PRN (08:00)
[2022-01-31] MEDS ORDERED: clonazePAM 0.5 MG TABLET PO SCH (09:00)
[2022-01-31] MEDS ORDERED: hydrOXYzine pamoate 25 MG CAPSULE PO SCH (09:00)
[2022-01-31 10:23] VITALS: BP 136/53; PULSE 85; TEMP 98.5
== END 2022-01-31 14:37 | disposition home or self-care (01) ==
LOC: EMEROOARM 11:13 → 2ANU 11:13
PROVIDERS: ADMIT Student in an Organized Health Care Education/Training Program; ATTEND Student in an Organized Health Care Education/Training Program